=== PATIENT | female | born 1990 | race Hispanic/Latino ===

== ENCOUNTER 2018-01-29 09:17 | Emergency (ER) | payer OTHER, SELFPAY ==
[2018-01-29 09:26] VITALS: BP 115/77; PULSE 76; RESP 19; TEMP 36.2; O2SAT 96; BMI 28.5
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
[2018-01-29] MEDS: SODIUM CHLORIDE 0.9% 1,000 ML 1000 ML IV (09:44)
[2018-01-29] MEDS: DEXAMETHASONE 10 MG/ML VIAL IV (09:44)
[2018-01-29] MEDS: PROCHLORPERAZINE 10 MG/2 ML VIAL 5 MG IV (09:44)
[2018-01-29] MEDS: diphenhydrAMINE 50 MG/ML VIAL 25 MG IV ×2 (09:45→10:34)
--- NOTE | 2018-01-29 10:08 | DI.CT.S_ITS ---
PROCEDURE: CT HEAD/BRAIN WO CON INDICATIONS: 27-year-old female with sudden onset of severe headaches. TECHNIQUE: Noncontrast 4.5 mm thick angled axial sections acquired from the foramen magnum to the vertex, with coronal and sagittal reformats. For radiation dose reduction, the following was used: automated exposure control, adjustment of mA and/or kV according to patient size. COMPARISON: None. FINDINGS: Image quality: Excellent. CSF spaces: Basal cisterns are patent. No extra-axial fluid collections. Ventricles are normal in size and shape. Brain: No midline shift. No intracranial masses or hemorrhage. Keen-white matter interface is normal. Skull and face: Calvarium and visualized facial bones are intact, without suspicious lesions. Sinuses: Visualized sinuses and mastoids are clear. IMPRESSION: No acute intracranial abnormalities. Dictated by: Noah Schrader M.D. on 01/29/2018 at 10:19 Approved by: Noah Schrader M.D. on 01/29/2018 at 10:21
[2018-01-29] MEDS: ACETAMINOPHEN 325 MG TABLET 975 MG PO (10:34)
--- NOTE | 2018-01-29 10:39 | PC.NURSE ---
MD aware of pts c/o leg numbness and no change in h/a sx
--- NOTE | 2018-01-29 10:55 | PC.NURSE ---
Resting in room. States little improvement.
[2018-01-29 11:14] VITALS: BP 106/67; PULSE 60; RESP 15; O2SAT 100
== END 2018-01-29 11:17 | disposition home or self-care (01) ==
PROVIDERS: Emergency Provider Emergency Medicine
DX: G43.909 Migraine, unspecified, not intractable, without status migrainosus (principal)
CPT/HCPCS: 36591; 70450; 96361; 96374; 96375; 96376; 99283; 99284; J0780; J1100; J1200

== ENCOUNTER 2018-09-05 18:26 | Emergency (ER) | payer OTHER, SELFPAY ==
[2018-09-05 18:39] VITALS: BP 138/85; PULSE 75; RESP 16; TEMP 36.5; O2SAT 100; BMI 30.4
--- NOTE | 2018-09-05 20:03 | DI.US.S_ITS ---
PROCEDURE: US PELVIC COMPLETE INDICATIONS: POSITIVE HOME ; LEFT PELVIC PAIN TECHNIQUE: Real-time scanning was performed of the pelvic organs, with image documentation. Additional endovaginal scanning was necessary due to incomplete visualization of the adnexal and endometrial structures by transabdominal scanning. COMPARISON: None. FINDINGS: Transabdominal scanning: Limited scanning through the kidneys shows no hydronephrosis. No pathologic free abdominal or pelvic fluid. Endovaginal scanning: Uterus: Uterus is normal in size at 8.6 x 4.0 x 5.4 cm. The endometrium measures 7.1 mm in combined thickness. There is no sonographic evidence for a gestational sac or intrauterine . Ovaries: The right ovary measures 3.4 x 2.4 x 3.3 cm and has a normal echotexture. The left ovary measures 3.3 x 2.1 x 1.6 cm and has a normal echotexture. The suprasellar bilaterally. IMPRESSION: 1. No sonographic findings to suggest gestational sac or intrauterine . 2. No sonographic findings to suggest corpus luteal cyst or ectopic ; however ectopic cannot be excluded. Close clinical and sonographic surveillance is recommended. Dictated by: Sigrid Underwood M.D. on 09/05/2018 at 21:32 Approved by: Sigrid Underwood M.D. on 09/05/2018 at 21:34
--- NOTE | 2018-09-05 20:05 | ED.ABDPAIN ---
HPI - Abdominal Pain General Chief Complaint: Abdominal Pain Stated Complaint: 5 WKS SHARP PAIN RT SIDE Time Seen by Provider: 09/05/18 19:58 Source: patient Mode of arrival: ambulatory Limitations: no limitations History of Present Illness HPI narrative: patient is a 28-year-old female who presents with right upper quadrant pain. She has had 2 episodes of sharp stabbing pain which has now resolved. The pain was nonradiating. She was feeling well earlier today. sHe is also currently 5 weeks she has some mild left lower quadrant pain with out vaginal bleeding. She has not had any fever or chills no nausea or vomiting. MD complaint: abdominal pain Related Data Previous Rx's Medication Instructions Recorded azithromycin [Zithromax] 250 mg PO SEE INSTRUCTIONS #6 tab 11/01/17 ondansetron [Zofran ODT] 4 mg PO Q6H PRN #10 tab 01/29/18 Allergies Allergy/AdvReac Type Severity Reaction Status Date / Time No Known Drug Allergies Allergy Verified 01/29/18 09:26 Review of Systems Review of Systems GENERAL: Denies chills, fatigue, malaise, fever, sweats, travel HEENT: Denies sinus pain, ear pain, sore throat, difficulty swallowing, neck pain RESPIRATORY: Denies dyspnea, cough, wheezing, hemoptysis, sputum. CARDIOVASCULAR: Denies chest pain, palpitations, orthopnea, edema GASTROINTESTINAL: See HPI : Denies dysuria, frequency, incontinence, hematuria, urinary retention, flank pain. [employer]: See HPI MUSCULOSKELETAL: Denies weakness, joint pain, or bony pain SKIN: No rash, no erythema, no pruritus NEUROLOGIC: Denies weakness, dizziness, headache, numbness, change in speech, confusion PSYCHIATRIC: No concerning psychosocial issues. 12 point review of systems is negative except for those stated above and HPI PFSH Medical History Anemia (Acute) Surgical History History of appendectomy (Acute) Social History Smoking Status: Never smoker Comment: Exam Initial Vital Signs Initial Vital Signs: Vital Signs Temperature 97.7 F 09/05/18 18:39 Pulse Rate 75 09/05/18 18:39 Respiratory Rate 16 09/05/18 18:39 Blood Pressure 138/85 09/05/18 18:39 Pulse Oximetry 100 09/05/18 18:39 GENERAL: well-appearing female no acute distress HEENT: Head atraumatic,EOMI, pupils reactive CARDIOVASCULAR: Regular rate and rhythm without murmurs, rubs or gallops. RESPIRATORY: Breath sounds equal bilaterally, no wheezes rales or rhonchi. ABDOMEN: Soft, mild right upper quadrant pain no guarding no rebound no epigastric pain : No CVA tenderness EXTREMITIES: Normal range of motion, no clubbing or edema. Neurovascularly intact NEUROLOGICAL: Alert and oriented x4.Normal gait and speech. Cranial nerves II through XII grossly intact. SKIN: Warm, dry, no laceration, no petechiae, no rashes or lesions. Course Orders Ordered: ED Orders 09/05/18 20:03 US pelvic complete Stat 09/05/18 20:04 US abdomen complete Stat 09/05/18 20:15 Complete Blood Count AUTO DIFF Stat Comprehensive Metabolic Panel Stat HCG Quantitative Stat Lipase Stat 09/05/18 20:17 Urine Microscopic Stat Discontinued Medications Sodium Chloride (Normal Saline 0.9%) 1,000 mls @ 1,000 mls/hr IV CONT RAJ Last Infusion: 09/05/18 21:28 Dose: 1,000 mls/hr Admin: 09/05/18 20:11 Dose: 1,000 mls/hr Vital Signs - 8 hr 09/05/18 18:39 Temperature 97.7 F Pulse Rate 75 Respiratory Rate 16 Blood Pressure 138/85 Pulse Oximetry 100 MDM - Abdominal Pain Lab Data Attestation: I reviewed the patient's lab results. Result diagrams: 09/05/18 20:15 09/05/18 20:15 Lab Results 09/05/18 09/05/18 09/05/18 Range/Units 20:15 20:15 20:17 WBC 12.9 H (4.5-11.0) X10^3/uL RBC 4.73 (4.0-5.2) X10^6/uL Hgb 14.2 (12.0-16.0) g/dL Hct 42.9 (36-46) % MCV 90.8 (80-100) fL MCH 30.1 (26-34) PG MCHC 33.1 (30-36) % RDW 13.7 (11.6-14.8) % Plt Count 352 (150-400) X10^3/uL Neut % (Auto) 67.5 (50-75) % Lymph % (Auto) 25.2 (25-40) % [place] % (Auto) 6.2 (3-14) % Eos % (Auto) 0.6 L (2-4) % Baso % (Auto) 0.5 (0-2) % Neut # (Auto) 8700 H (8776-6255) /uL Lymph # (Auto) 3200 (1118-1718) /uL [place] # (Auto) 800 (0-900) /uL Eos # (Auto) 100 (0-450) /uL Baso # (Auto) 100 (0-100) /uL Sodium 138 (137-145) mmol/L Potassium 4.0 (3.4-5.1) mmol/L Chloride 102 (98-107) mmol/L Carbon Dioxide 26 (22-32) mmol/L BUN 18 H (7-17) mg/dL Creatinine 0.60 (0.52-1.04) mg/dL Estimated GFR > 60.0 (>60) mL/min BUN/Creatinine Ratio 30.0 H (6-22) Glucose 94 (70-100) mg/dL Calcium 9.4 (8.4-10.2) mg/dL Total Bilirubin 0.3 (0.2-1.3) mg/dL AST 21 (14-36) IU/L ALT 25 (9-52) IU/L Alkaline Phosphatase 85 (38-126) U/L Total Protein 8.1 (6.3-8.2) g/dL Albumin 4.8 (3.5-5.0) g/dL Globulin 3.3 (1.7-4.1) g/dL Albumin/Globulin Ratio 1.5 (1.0-2.8) Lipase 70 (23-300) U/L HCG, Quant < 2.39 mIU/mL Urine RBC 0-1/hpf (0-5/HPF) Urine WBC 0-1/hpf (0-5/HPF) Ur Squamous Epith Cells 0-1 /hpf Urine Bacteria None seen (None) Ur Culture Indicated? Cult not indicated Point of care testing: Urine Dip Bedside Urine Glucose Negative Bedside Urine Bilirubin - Negative Bedside Urine Ketone - Negative Urine Specific [place] 1.025 Bedside Urine Occult Blood +/- Bedside Urine pH 6.0 Bedside Urine Protein - Negative Bedside Urine Urobilinogen - Negative Bedside Urine Nitrite - Negative Bedside Urine Leukocytes - Negative Esterase Imaging Data US - abdomen: Radiologist's impression: PROCEDURE: US ABDOMEN COMPLETE INDICATIONS: PAIN TECHNIQUE: Real-time scanning was performed of the abdominal and retroperitoneal organs, with image documentation. COMPARISON: None. FINDINGS: Liver: Liver is normal in size and homogeneous in echotexture. Gallbladder: The gallbladder wall measures 2.3 mm in thickness. No stones, sludge, pericholecystic fluid, or sonographic Unger sign. Biliary ducts: Intrahepatic bile ducts are non-dilated. Extrahepatic bile duct caliber measures 3.0 mm. Normal is 6-7 mm or less in diameter, or 10 mm or less post-cholecystectomy. Pancreas: Visualized portions of the pancreas are sonographically normal. Spleen: Spleen is normal in size and homogeneous in echotexture. Kidneys: Kidneys are normal in size and echotexture. Right kidney measures 10.8 cm long; left kidney measures 9.1 cm long. No hydronephrosis or nephrolithiasis. No solid masses. Aorta: Visualized aorta is normal in caliber at less than 3 cm. Iliacs: Proximal common iliac arteries are normal in caliber at less than 2.5 cm. IVC: Intrahepatic inferior vena cava is patent. Miscellaneous: No free abdominal fluid. IMPRESSION: No cholelithiasis or findings to suggest choledocholithiasis or acute cholecystitis. Dictated by: Sigrid Underwood M.D. on 09/05/2018 at 21:29 Pelvic ultrasound: Radiologist's impression: PROCEDURE: US PELVIC COMPLETE INDICATIONS: POSITIVE HOME ; LEFT PELVIC PAIN TECHNIQUE: Real-time scanning was performed of the pelvic organs, with image documentation. Additional endovaginal scanning was necessary due to incomplete visualization of the adnexal and endometrial structures by transabdominal scanning. COMPARISON: None. FINDINGS: Transabdominal scanning: Limited scanning through the kidneys shows no hydronephrosis. No pathologic free abdominal or pelvic fluid. Endovaginal scanning: Uterus: Uterus is normal in size at 8.6 x 4.0 x 5.4 cm. The endometrium measures 7.1 mm in combined thickness. There is no sonographic evidence for a gestational sac or intrauterine . Ovaries: The right ovary measures 3.4 x 2.4 x 3.3 cm and has a normal echotexture. The left ovary measures 3.3 x 2.1 x 1.6 cm and has a normal echotexture. The suprasellar bilaterally. IMPRESSION: 1. No sonographic findings to suggest gestational sac or intrauterine . 2. No sonographic findings to suggest corpus luteal cyst or ectopic ; however ectopic cannot be excluded. Close clinical and sonographic surveillance is recommended. Dictated by: Sigrid Underwood M.D. on 09/05/2018 at 21:32 MDM Narrative Medical decision making narrative: Patient had no evidence of on ultrasound or by blood work. I have discussed these results with her. At this time blood work and abdominal ultrasound are reassuring. No identification of cause of right upper quadrant pain. She has not had any recurrence of pain while in the ED. At this time discharge home. Discharge Plan Departure Patient Disposition: Home Clinical Impression: Abdominal pain Discharge Date/Time: 09/05/18 20:05 Interventions: ED Discharge Assessment Last Done: 09/05/18 22:11 Instructions: DI for Abdominal Pain-Adult Activity Restrictions/Additional Instructions: *You have been diagnosed with abdominal discomfort *What to do: ultrasound of abdomen and pelvis are within normal limits. Unfortunately no is identified with blood work or ultrasound. *Continue to take medications as directed *Follow up with your primary care provider in 2-3 days *Return to ER if you should have increasing pain, persistent vomiting or any new, worsening or concerning symptoms Prescriptions: No Action azithromycin [Zithromax] 250 MG tablet 250 mg PO SEE INSTRUCTIONS Qty: 6 RF: 0 ondansetron [Zofran ODT] 4 mg tablet,disintegrating 4 mg PO Q6H PRN (Reason: nausea and vomiting) Qty: 10 RF: 0 Referrals: [facility] [Provider Group]
[2018-09-05] MEDS: SODIUM CHLORIDE 0.9% 1,000 ML 1000 ML IV (20:11)
[2018-09-05 20:28] LABS: Add Manual Diff / Slide Review NO; Basophils Absolute Auto 100 /uL (0-100); Basophils Percent Auto 0.5 % (0-2); Eosinophils Absolute Auto 100 /uL (0-450); Eosinophils Percent Auto 0.6 % (2-4); Hematocrit 42.9 % (36-46); Hemoglobin 14.2 g/dL (12.0-16.0); Lymphocytes Absolute Auto 3200 /uL (1100-4500); Lymphocytes Percent Auto 25.2 % (25-40); Mean Corpuscular HGB Conc 33.1 % (30-36); Mean Corpuscular Hemoglobin 30.1 PG (26-34); Mean Corpuscular Volume 90.8 fL (80-100); Monocytes Absolute Auto 800 /uL (0-900); Monocytes Percent Auto 6.2 % (3-14); Neutrophils Absolute Auto 8700 /uL (1500-7000); Neutrophils Percent Auto 67.5 % (50-75); Platelet Count 352 X10^3/uL (150-400); Red Blood Cell Count 4.73 X10^6/uL (4.0-5.2); Red Cell Distribution Width 13.7 % (11.6-14.8); White Blood Cell Count 12.9 X10^3/uL (4.5-11.0)
[2018-09-05 20:46] LABS: Alanine Aminotransferase 25 IU/L (9-52); Albumin 4.8 g/dL (3.5-5.0); Albumin Globulin Ratio 1.5 (1.0-2.8); Alkaline Phosphatase 85 U/L (38-126); Aspartate Aminotransferase 21 IU/L (14-36); Bilirubin Total 0.3 mg/dL (0.2-1.3); Blood Urea Nitrogen 18 mg/dL (7-17); Calcium 9.4 mg/dL (8.4-10.2); Carbon Dioxide 26 mmol/L (22-32); Chloride 102 mmol/L (98-107); Estimated Glomerular Filt Rate > 60.0 mL/min (>60); Globulin 3.3 g/dL (1.7-4.1); Glucose 94 mg/dL (70-100); HEMOLYSIS < 15 (0-50); Lipase 70 U/L (23-300); Sodium 138 mmol/L (137-145); Total Protein 8.1 g/dL (6.3-8.2)
[2018-09-05 21:02] LABS: HCG Quantitative /Beta subunit < 2.39 mIU/mL
[2018-09-05 21:20] LABS: Bacteria Urine None Seen
[2018-09-05 21:29] LABS: Culture Indicated Urine Cult Not Indicated; RBC Urine 0-1/HPF (0-5/HPF); Squamous Epithelial Cell Urine 0-1 /HPF; WBC Urine 0-1/HPF (0-5/HPF)
== END 2018-09-05 20:05 | disposition home or self-care (01) ==
PROVIDERS: Emergency Provider Emergency Medicine
DX: R10.9 Unspecified abdominal pain (principal)
CPT/HCPCS: 76700; 76830; 76856; 80053; 81003; 81015; 83690; 84702; 85025; 96360; 99283; 99284

== ENCOUNTER 2018-12-06 20:10 | Emergency (ER) | payer OTHER, SELFPAY ==
[2018-12-06 20:20] VITALS: BP 125/83; PULSE 76; RESP 18; TEMP 37.2; O2SAT 100; BMI 30.4
--- NOTE | 2018-12-06 21:46 | ED_ITS ---
HPI - Abdominal Pain General Chief Complaint: Abdominal Pain Stated Complaint: constipation x 6 days Time Seen by Provider: 12/06/18 20:56 Source: patient Mode of arrival: ambulatory Limitations: no limitations History of Present Illness HPI narrative: Patient is a 28-year-old otherwise healthy female here for evaluation of not having a bowel movement in the past 6 days. She states she now has hemorrhoids. She has bought some MiraLax [id number] and the last time she used it was earlier today. Is having some abdominal distention. No vaginal bleeding. No urinary symptoms. she has had her appendix out but no other abdominal surgeries. States she does have some hemorrhoids which she bought some witch Abena pads for. Related Data Previous Rx's Medication Instructions Recorded azithromycin [Zithromax] 250 mg PO SEE INSTRUCTIONS #6 tab 11/01/17 ondansetron [Zofran ODT] 4 mg PO Q6H PRN #10 tab 01/29/18 Allergies Allergy/AdvReac Type Severity Reaction Status Date / Time No Known Drug Allergies Allergy Verified 01/29/18 09:26 Review of Systems Constitutional Denies fever(s) and Denies headache(s) ENT Ears, Nose, Mouth, and Throat: Denies vertigo and Denies headache(s) Cardiovascular Denies chest pain and Denies dyspnea Respiratory Denies dyspnea Gastrointestinal Gastrointestinal: Denies abdominal pain, Reports bloating, Reports constipation, Denies nausea and Denies vomiting Genitourinary Denies dysuria and Denies vaginal discharge Musculoskeletal Denies myalgias and Denies arthralgias Integumentary/Breasts Denies rash Neurologic Denies vertigo and Denies headache(s) Hematologic/Lymphatic Denies easy bleeding and Denies easy bruising [facility] Medical History Anemia (Acute) Surgical History History of appendectomy (Acute) Social History Smoking Status: Never smoker Social History Smoking Status: Never smoker Exam Initial Vital Signs Initial Vital Signs: Vital Signs Temperature 98.9 F 12/06/18 20:20 Pulse Rate 76 12/06/18 20:20 Respiratory Rate 18 12/06/18 20:20 Blood Pressure 125/83 12/06/18 20:20 Pulse Oximetry 100 12/06/18 20:20 Const General: cooperative, comfortable, well developed, well groomed and No acute distress Orientation: alert, awake and oriented x3 Resp Effort & Inspection: normal respiratory effort Cardio Rate: regular rate GI Inspection: non-distended Palpation: soft, No firm, No guarding, No mass and No tender Neuro General: alert, awake and oriented x3 Cognition: normal cognition Speech: speech normal Extrem General: normal to inspection and capillary refill normal Course Orders Ordered: Discontinued Medications Mineral Oil (Mineral Oil Enema) 1 each MS NOW ONE Stop: 12/06/18 22:17 Last Admin: 12/06/18 22:44 Dose: 1 each Vital Signs - 8 hr 12/06/18 20:20 12/06/18 22:09 Temperature 98.9 F Pulse Rate 76 76 Respiratory Rate 18 18 Blood Pressure 125/83 Blood Pressure [Right Arm] 115/64 Pulse Oximetry 100 98 MDM - Abdominal Pain Lab Data Point of care testing: Point of Care Testing Test Results Negative Urine Dip Bedside Urine Glucose Negative Bedside Urine Bilirubin - Negative Bedside Urine Ketone - Negative Urine Specific [place] 1.015 Bedside Urine Occult Blood - Negative Bedside Urine pH 7.0 Bedside Urine Protein - Negative Bedside Urine Urobilinogen - Negative Bedside Urine Nitrite - Negative Bedside Urine Leukocytes - Negative Esterase MDM Narrative Medical decision making narrative: Had a discussion with the patient's regarding her options to include going home and continue with the MiraLax, disimpaction, enemas here in the emergency department, enemas at home. Patient agreed to have an enema here in the emergency department which was unsuccessful. She states that she was feeling the pressure somewhat less after the enema. She declined a manual disimpaction. She states she would rather go home and continue with the MiraLax and enemas that she can purchase [id number]. Will hold on any x- rays for now. She has a benign abdominal exam. Patient was given return precautions and follow-up instructions. She expressed understanding and agreement with plan. Discharge Plan Departure Patient Disposition: Home Clinical Impression: Constipation Qualifiers: Constipation type: unspecified constipation type Qualified Code(s): K59.00 - Constipation, unspecified Instructions: Constipation (Alternative Therapy), Constipation Activity Restrictions/Additional Instructions: You can continue with the MiraLax like we discussed. Be sure your increasing your fluid intake. Contact your primary care doctor for follow-up. You can also purchase enemas [id number] use them as directed. Return to the emergency department for any new or worsening symptoms Prescriptions: No Action azithromycin [Zithromax] 250 MG tablet 250 mg PO SEE INSTRUCTIONS Qty: 6 RF: 0 ondansetron [Zofran ODT] 4 mg tablet,disintegrating 4 mg PO Q6H PRN (Reason: nausea and vomiting) Qty: 10 RF: 0
[2018-12-06 22:09] VITALS: BP 115/64; PULSE 76; RESP 18; O2SAT 98
[2018-12-06] MEDS: MINERAL OIL 1 EACH ENEMA PR (22:44)
--- NOTE | 2018-12-06 23:15 | PC.NURSE ---
Pt has BM of mineral oil but no real BM and informed DR Cain.
[2018-12-06 23:32] VITALS: BP 118/70; PULSE 72; RESP 18; TEMP 36.7; O2SAT 99
== END 2018-12-06 23:32 | disposition home or self-care (01) ==
PROVIDERS: Emergency Provider Emergency Medicine
DX: K59.00 Constipation, unspecified (principal)
CPT/HCPCS: 81003; 81025; 99283

== ENCOUNTER 2019-09-18 14:48 | Emergency (ER) | payer OTHER, SELFPAY ==
[2019-09-18 16:17] VITALS: BP 137/88; PULSE 67; RESP 16; TEMP 36.9; O2SAT 98; BMI 30.4
--- NOTE | 2019-09-18 16:51 | ED.RECABL ---
HPI - Recheck/Abnormal Lab/Rx <Venkat BradleyMARGARITA piña - Last Filed: 09/18/19 16:59> General Chief Complaint: Recheck/Abnormal Lab/Rx Stated Complaint: NEEDS A NOTE TO GO BACK TO WORK Time Seen by Provider: 09/18/19 16:33 Source: patient Mode of arrival: Family Vehicle Limitations: no limitations History of Present Illness HPI narrative: This is a 29-year-old female, nonsmoker, who presents to ED with requesting for re-evaluation for bronchitis and clearance to go back to work. Patient reports she has been on antibiotic medication, erythromycin, since Saturday due to mild fever, chest pain, breathing difficulty, significant cough. She reports her symptoms have been improved significantly after 2 days of antibiotic medication. She has been fever free for last 3 days. Patient is able to tolerate fluids and denies chest pain, significant productive cough, fatigue. 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 Related Data Previous Rx's Medication Instructions Recorded azithromycin [Zithromax] 250 mg PO SEE INSTRUCTIONS #6 tab 11/01/17 ondansetron [Zofran ODT] 4 mg PO Q6H PRN #10 tab 01/29/18 Allergies Allergy/AdvReac Type Severity Reaction Status Date / Time No Known Drug Allergies Allergy Verified 01/29/18 09:26 Review of Systems <Venkat NoriegaAmyMARGARITA Jimenez - Last Filed: 09/18/19 16:59> Review of Systems Narrative: General: Denies fever, chills, fatigue, malaise, sweats. HEENT: Denies sinus pain, ear pain, sore throat, difficulty swallowing, dizziness. Respiratory: Denies dyspnea, cough, wheezing, hemoptysis, sputum. Cardiovascular: Denies chest pain, palpitations, orthopnea, edema. Gastrointestinal: Denies nausea, vomiting, abdominal pain, diarrhea, constipation, melena. : Denies dysuria, frequency, incontinence, hematuria, urinary retention. Musculoskeletal: Denies weakness, joint pain or bony pain. Skin: Denies rash, skin lesions, or other. Neurologic: Denies weakness, headache, numbness, change in speech, confusion, seizures, incoordination. Psychiatric: No concerning psychosocial issues. 12-point review of systems is negative except for those stated above. Patient History <MARGARITA Zamarripa - Last Filed: 09/18/19 16:59> Medical History Anemia (Acute) Bronchitis (Acute) Surgical History History of appendectomy (Acute) Social History Smoking Status: Never smoker Smoking Status: Never smoker alcohol intake frequency: holidays/special occasions only Substance Use Type: does not use Exam <MARGARITA Zamarripa - Last Filed: 09/18/19 16:59> Narrative Exam Narrative: General appearance: well developed, well nourished, in no acute distress. Head: normocephalic, atraumatic, no scalp lesions, non-tender. ENT: Hearing grossly intact. Mucous membrane moist, no mucosal lesion. Throat without erythema, tonsillar hypertrophy or exudate. Uvula in midline, airway patent. Neck/Thyroid: neck supple, full range of motion, no visible masses or meningeal signs. No JVD, non-tender without lymphadenopathy. Skin: no suspicious rashes, lesions over visible areas. Warm and dry and appropriate color for ethnicity. Heart: no clubbing, no cyanosis, no edema. S1 and S2 normal. RRR w/o murmurs, clicks, or bruits. Lungs: Breathing even and unlabored. Lungs clear to auscultate in all lobes. No stridor. No accessory muscles used. Able to speak in full sentences. Chest: normal shape and expansion. Abdomen: non-obese, non-distended, soft, intact bowel sounds in all quadrant, nontender to palpate. Neurologic: alert and oriented. Cognitive exam, HEAD SAWYER and PNS grossly intact on informal exam. Psych: good eye contact, normal affect. Initial Vital Signs Initial Vital Signs: Vital Signs Temperature 98.4 F 09/18/19 16:17 Pulse Rate 67 09/18/19 16:17 Respiratory Rate 16 09/18/19 16:17 Blood Pressure 137/88 09/18/19 16:17 Pulse Oximetry 98 09/18/19 16:17 <Rush Wyatt MD - Last Filed: 09/18/19 21:52> Initial Vital Signs Initial Vital Signs: Vital Signs Temperature 98.4 F 09/18/19 16:17 Pulse Rate 67 09/18/19 16:17 Respiratory Rate 16 09/18/19 16:17 Blood Pressure 137/88 09/18/19 16:17 Pulse Oximetry 98 09/18/19 16:17 Scores <Venkat HuertaMARGARITA piña - Last Filed: 09/18/19 16:59> GCS Barbi coma scale eye opening: Spontaneous Barbi coma scale verbal response: Orientated Barbi coma scale motor response: Obey commands Ava coma scale total score: 15 Course <Venkat RazaMARGARITA Perkins - Last Filed: 09/18/19 16:59> Vital Signs Vital signs: Vital Signs - 8 hr 09/18/19 16:17 Temperature 98.4 F Pulse Rate 67 Respiratory Rate 16 Blood Pressure 137/88 Pulse Oximetry 98 <Rush Wyatt MD - Last Filed: 09/18/19 21:52> Vital Signs Vital signs: Vital Signs - 8 hr 09/18/19 16:17 Temperature 98.4 F Pulse Rate 67 Respiratory Rate 16 Blood Pressure 137/88 Pulse Oximetry 98 [facility] - Recheck/Abnormal Lab/Rx <Venkat HuertaMARGARITA piña - Last Filed: 09/18/19 16:59> Differential Diagnosis Differential diagnosis: Likely other (Encounter for re-evaluation on recent illness bronchitis) Medical Records Attestation: I reviewed the patient's medical records. [facility] Narrative Medical decision making narrative: Patient reports improving symptoms, fever free since she had started antibiotic medication 5 days ago. Normal physical exam with clear lung sounds, stable vital signs with afebrile. Patient is ready to return to work. Continue with current medications and albuterol as needed if coughing. Good hand hygiene after coughing instructed. Return precautions were discussed and patient verbalized understanding and agrees with the treatment plan. Discharge Plan Departure Patient Disposition: Home Clinical Impression: Normal exam Discharge Date/Time: 09/18/19 17:09 Activity Restrictions/Additional Instructions: You have been diagnosed with [resolving bronchitis after antibiotic medication for last 5 days. You have been fever free for last 3 days and there is no significant coughing, able to tolerate fluids, and feeling much improved at this time. Therefore, you are able to return to work]. What to do: *Take your medications as directed. *Follow up with your primary care provider in 2-3 days, call for an appointment. Let them know you were seen in the ED and that we asked you to be seen in follow up. *Return to ED if you have any new, worsening, or concerning symptoms, such as [chest pain, breathing difficulty, unable to tolerate fluids, fever, or any acute concerns]. Prescriptions: No Action azithromycin [Zithromax] 250 MG tablet 250 mg PO SEE INSTRUCTIONS Qty: 6 RF: 0 ondansetron [Zofran ODT] 4 mg tablet,disintegrating 4 mg PO Q6H PRN (Reason: nausea and vomiting) Qty: 10 RF: 0 [address]errals: [facility] [Outside] Stand Alone Forms: Work Release Note
== END 2019-09-18 17:09 | disposition home or self-care (01) ==
PROVIDERS: Emergency Provider Nurse Practitioner Family
DX: Z00.00 Encounter for general adult medical examination without abnormal findings (principal)
CPT/HCPCS: 99281

== ENCOUNTER → 2020-02-11 16:43 | Outpatient (CLI) | payer OTHER, SELFPAY ==
[2020-02-11 17:36] LABS: Appearance Urine UA CLEAR; Bilirubin Urine UA NEGATIVE (NEGATIVE); Color Urine UA YELLOW; Glucose Urine UA NEGATIVE (Negative); Ketones Urine UA TRACE (NEGATIVE); Leukocyte Esterase Urine UA NEGATIVE (NEGATIVE); Nitrite Urine UA NEGATIVE (Negative); Occult Blood Urine UA 1+ (Negative); Protein Urine UA NEGATIVE (Negative); Specific Gravity Urine UA 1.025 (1.000-1.035)
[2020-02-11 17:38] LABS: pH Urine UA 5.5 (4.5-8.0)
[2020-02-11 17:46] LABS: Add Manual Diff / Slide Review NO; Basophils Absolute Auto 0 /uL (0-100); Basophils Percent Auto 0.3 % (0-2); Eosinophils Absolute Auto 100 /uL (0-450); Eosinophils Percent Auto 0.6 % (2-4); Hematocrit 39.2 % (36-46); Hemoglobin 13.4 g/dL (12.0-16.0); Lymphocytes Absolute Auto 2300 /uL (1100-4500); Lymphocytes Percent Auto 19.9 % (25-40); Mean Corpuscular HGB Conc 34.1 % (30-36); Mean Corpuscular Hemoglobin 31.6 PG (26-34); Mean Corpuscular Volume 92.5 fL (80-100); Monocytes Absolute Auto 800 /uL (0-900); Monocytes Percent Auto 6.7 % (3-14); Neutrophils Absolute Auto 8300 /uL (1500-7000); Neutrophils Percent Auto 72.5 % (50-75); Platelet Count 299 X10^3/uL (150-400); Red Blood Cell Count 4.24 X10^6/uL (4.0-5.2); Red Cell Distribution Width 12.8 % (11.6-14.8); White Blood Cell Count 11.4 X10^3/uL (4.5-11.0)
[2020-02-11 17:51] LABS: Bacteria Urine Occasional (0-1); Calcium Oxalate Crystals Urine Few; RBC Urine 1-5/HPF (0-5/HPF); Squamous Epithelial Cell Urine 1-5 /HPF (0-5/HPF); WBC Urine 0-1/HPF (0-5/HPF)
[2020-02-11 17:53] LABS: Mucus Urine 1+ (Negative)
[2020-02-12 04:45] LABS: RPR Screen Non Reactive (Non Reactive)
[2020-02-12 09:04] LABS: Hepatitis B Surface Antigen NEGATIVE s/c (NEGATIVE); Rubella Antibody IgG 8.8 IU/mL (>15)
[2020-02-12 09:16] LABS: HIV 1 & 2 Ab/Ag 4th Gen Combo NEGATIVE (NEGATIVE); Hep C Virus Ab w/Reflex Quant NEGATIVE s/c (NEGATIVE)
[2020-02-12 12:12] LABS: Varicella IgG Antibody 921 index (Immune >165)
[2020-02-13 07:12] LABS: Candida species Negative (Negative); Gardnerella vaginalis Negative (Negative); Trichomoas vaginalis Negative (Negative)
== END ==
PROVIDERS: Referring Provider Obstetrics & Gynecology; Visit Provider Obstetrics & Gynecology
DX: Z34.90 Encounter for supervision of normal pregnancy, unspecified, unspecified trimester (principal)
CPT/HCPCS: 36415; 80055; 81003; 81015; 86787; 86803; 86850; 86900; 86901; 87086; 87389; 87480; 87510; 87660

== ENCOUNTER → 2020-02-16 14:38 | Outpatient (CLI) | payer OTHER, SELFPAY ==
--- NOTE | 2020-02-16 | DI.US.S_ITS ---
PROCEDURE: US ABDOMEN LIMITED INDICATIONS: LEFT HIP PAIN; POSSIBLE HEMATOMA TECHNIQUE: Real-time focused scanning was performed of the abdomen, with image documentation. COMPARISON: [facility], , US ABDOMEN LIMITED, 02/16/2020, 19:06. FINDINGS: In the area of clinical concern and pain, no sonographic abnormality identified. No discrete hematoma, mass or focal fluid collection is seen, IMPRESSION: Negative examination as above Dictated by: Jer Walker M.D. on 02/17/2020 at 10:03 Approved by: Jer Walker M.D. on 02/17/2020 at 10:04
--- NOTE | 2020-02-16 14:41 | DI.US.S_ITS ---
PROCEDURE: US OB LIMITED INDICATIONS: Bleeding in after fall and Left kidney pain OUTSIDE/PRIOR DATING DATA: Last menstrual period (LMP): 11/01/19. LMP-based estimated date of delivery (WILMER): 08/07/20. TECHNIQUE: Real-time scanning was performed of the fetus, with image documentation and biometric measurements. Endovaginal scanning: Not performed COMPARISON: [facility], LINDA, OB COMPLETE, 02/16/2020, 13:00. FINDINGS: General: A single living intrauterine gestation is present. heart rate: 158 beats per minute. biometrics: Biparietal diameter: 2.8 cm, 15 weeks and 1 day Head circumference: 10.6 cm, 15 weeks and 1 day Abdominal circumference: 9.2 cm, 15 weeks and 3 days Femur length: 1.5 cm, 14 weeks and 4 days Estimated gestational age from initial scan: not applicable. Composite gestational age from present scan: 15 weeks and 1 day Estimated weight and percentile: Not measured Measurement variability for biometric dating: +/- 7 days from 14 weeks to 15 weeks 6 days gestation, +/- 10 days from 16 weeks to 21 weeks 6 days gestation, +/- 2 weeks from 22 weeks to 27 weeks 6 days gestation, +/- 3 weeks for 28 weeks gestation or later. weight reference: 4500 g or EFW >90/95% is considered macrosomia or large for gestational age. EFW <10% is small for gestational age. EFW 5% or less is considered intra-uterine growth restriction. Other: There is an apparent enlarging heterogeneous collection noted between the placenta and uterus measuring approximately 7.2 cm x 2.9 cm x 5.0 cm. This measured 4.2 cm x 0.9 cm from exam obtained earlier today. There is internal vascularity within this fluid collection. IMPRESSION: 1. Single living intrauterine gestation with an estimated sonographic gestational age of approximately 15 weeks and 1 day. 2. Enlarging, heterogeneous fluid collection with internal vascularity noted between the placenta and uterus is suspicious for placental abruption. Findings were discussed telephonically with Dr. Solitario at 1610 hrs. Dictated by: José Carrasoc M.D. on 02/16/2020 at 16:08 Approved by: José Carrasco M.D. on 02/16/2020 at 16:16
== END ==
PROVIDERS: Referring Provider Obstetrics & Gynecology; Visit Provider Obstetrics & Gynecology
DX: O9A.212 Injury, poisoning and certain other consequences of external causes complicating pregnancy, second trimester (principal); O46.8X2 Other antepartum hemorrhage, second trimester; N23 Unspecified renal colic; M25.552 Pain in left hip; Z3A.15 15 weeks gestation of pregnancy; W19.XXXA Unspecified fall, initial encounter
CPT/HCPCS: 76705; 76815

== ENCOUNTER 2020-02-16 17:10 | Observation (INO) | payer OTHER, SELFPAY ==
[2020-02-16] VITALS (15 sets, daily range): BP systolic 107–127; BP diastolic 58–85; PULSE 80–94; RESP 16; TEMP 36.6; O2SAT 97–100; BMI 34.2
--- NOTE | 2020-02-16 18:21 | DI.US.S_ITS ---
PROCEDURE: US ABDOMEN LIMITED INDICATIONS: LEFT FLANK PAIN POST FALL TECHNIQUE: Real-time scanning was performed of the abdominal and retroperitoneal organs, with image documentation. COMPARISON: [facility], CR, XR RIBS LT MIN 3V W [id number], 02/16/2020, 18:29. [facility], US, US ABDOMEN COMPLETE, 09/05/2018, 20:55. [facility], US, ABDOMEN LIMITED, 11/04/2015, 14:00. FINDINGS: Left kidney: Kidney is normal in size and echotexture. Left kidney measures 10.9 cm cm long. No hydronephrosis or nephrolithiasis. No solid masses. Spleen: Measures 9.3 cm. No laceration or perisplenic fluid. No free fluid in the 4 abdominal quadrants. Gravid uterus. A heart rate 147 bpm. IMPRESSION: No left kidney or splenic injury identified. No free fluid. Dictated by: Fahad Robertson M.D. on 02/16/2020 at 19:33 Approved by: Fahad Robertson M.D. on 02/16/2020 at 19:38
--- NOTE | 2020-02-16 18:26 | ED_ITS ---
HPI - Fall General Chief Complaint: Abdominal Pain Stated Complaint: FALL LEFT SIDE LOWER BACK BELLY PAIN 16 WKS PREGNA Time Seen by Provider: 02/16/20 18:12 Source: patient Mode of arrival: Ambulatory History of Present Illness HPI Narrative: Patient sent here from her OBGYN office dr saravia... Patient fell at home reaching for an item and her dog bumped into a chair causing her to fall landing on her left side/left flank. Denies denies any other injury other than left flank. No head neck limb pelvis lower extremity pain. No neck pain. Patient was seen in the OB office and had ultrasound completed. Please see report below. Patient here is for further evaluation for trauma and then to be admitted for observation with OB. Patient is A2. Denies any vaginal bleeding. She did already have a pelvic exam by her OB doctor. Patient blood type is O-positive that was drawn 5 [place] [address] Ultrasound Report Signed Patient: Damaris Fleming JMR#: [id number] : 1990Acct:[id number] Age/Sex: 29 / FDate of Service: 02/16/20 Loc: US Accession Number: [id number] Procedure: US OB limited Ordering Provider: Davina Saravia MD PROCEDURE: US OB LIMITED INDICATIONS: Bleeding in after fall and Left kidney pain OUTSIDE/PRIOR DATING DATA: Last menstrual period (LMP): 11/01/19. LMP-based estimated date of delivery (WILMER): 08/07/20. TECHNIQUE: Real-time scanning was performed of the fetus, with image documentation and bi ometric measurements. Endovaginal scanning: Not performed COMPARISON: [facility], LINDA, OB COMPLETE, 02/16/2020, 13:00. FINDINGS: General: A single living intrauterine gestation is present. heart rate: 158 beats per minute. biometrics: Biparietal diameter: 2.8 cm, 15 weeks and 1 day Head circumference: 10.6 cm, 15 weeks and 1 day Abdominal circumference: 9.2 cm, 15 weeks and 3 days Femur length: 1.5 cm, 14 weeks and 4 days Estimated gestational age from initial scan: not applicable. Composite gestational age from present scan: 15 weeks and 1 day Estimated weight and percentile: Not measured Measurement variability for biometric dating: +/- 7 days from 14 weeks to 15 weeks 6 days gestation, +/- 10 days from 16 weeks to 21 weeks 6 days gestation, +/- 2 weeks from 22 weeks to 27 weeks 6 days gestation, +/- 3 weeks for 28 weeks gestation or later. weight reference: 4500 g or EFW >90/95% is considered macrosomia or large for gestational age. EFW <10% is small for gestational age. EFW 5% or less is considered intra-uterine growth restriction. Other: There is an apparent enlarging heterogeneous collection noted between the placenta and uterus measuring approximately 7.2 cm x 2.9 cm x 5.0 cm. This measured 4.2 cm x 0.9 cm from exam obtained earlier today. There is internal vascularity within this fluid collection. IMPRESSION: 1. Single living intrauterine gestation with an estimated sonographic gestational age of approximately 15 weeks and 1 day. 2. Enlarging, heterogeneous fluid collection with internal vascularity noted between the placenta and uterus is suspicious for placental abruption. Findings were discussed telephonically with Dr. Saravia at 1610 hrs. Dictated by: José Carrasco M.D. on 02/16/2020 at 16:08 Approved by: José Carrasco M.D. on 02/16/2020 at 16:16 Related Data Home Medications Medication Instructions Recorded Confirmed prenat.vits,nisha,[id number] 1 tab PO DAILY 02/10/20 02/16/20 Allergies Allergy/AdvReac Type Severity Reaction Status Date / Time No Known Drug Allergies Allergy Verified 02/16/20 17:29 Review of Systems Review of Systems Narrative: GENERAL: Denies chills, fatigue, malaise, fever, sweats. HEENT: Denies sinus pain, ear pain, sore throat, difficulty swallowing, dizziness. RESPIRATORY: Denies dyspnea, cough, wheezing, hemoptysis, sputum. CARDIOVASCULAR: Denies chest pain, palpitations, orthopnea, edema, GASTROINTESTINAL: Denies nausea, vomiting, abdominal pain, diarrhea, constipation, melena. : Denies dysuria, frequency, incontinence, hematuria, urinary retention. MUSCULOSKELETAL: Complains of left flank pain SKIN: Denies rash, skin lesions, or other NEUROLOGIC: Denies weakness, headache, numbness, change in speech, confusion, seizures, incoordination. PSYCHIATRIC: No concerning psychosocial issues. ROS Unobtainable: All systems reviewed & are unremarkable except as noted in HPI and below Patient History Medical History Anemia (Acute) Bronchitis (Acute) Dehydration (Acute ~02/04/20) Episode of syncope (Acute) Migraine (Acute) Multiparity (Acute) Stress (Acute) (spontaneous vaginal delivery) (Acute) Surgical History History of appendectomy (Acute ~10/2015) Family History Mother Heart palpitations Father Family estrangement Heroin addiction HIV (human immunodeficiency virus infection) Adopted Son Cardiac arrhythmia Cardiac related syncope Grandfather Diabetes mellitus Grandmother Myocardial infarction Hypertension Cardiomyopathy Grandfather Family estrangement Grandmother Family estrangement Family/Other Cervical cancer Social History marital status: unmarried,living together number of children: 2 household members: significant other and children pets and animals: Yes (X 1 Dog and X 1 Cat ) education level: college occupational status: unemployed current occupational exposures/hazards: No clay/restorationism: Anabaptist special clay needs: No Smoking Status: Never smoker second hand exposure: No alcohol intake: former substance use type: does not use Smoking Status: Never smoker alcohol intake frequency: holidays/special occasions only Substance Use Type: does not use Exam Narrative Exam Narrative: GENERAL: patient appears stated age. Well-nourished, well- developed patient, in no distress, not toxic, shirt off HEAD: Atraumatic. Normocephalic. EYES: Pupils equal round and reactive. Extraocular motions intact. No scleral icterus. No injection or drainage. ENT: Nose without bleeding, purulent drainage. Throat without erythema, tonsillar hypertrophy or exudate. Airway patent. NECK: Trachea midline. Non tender CARDIOVASCULAR: Regular rate and rhythm without murmurs, gallops, or rubs. RESPIRATORY: Clear to auscultation. Breath sounds equal bilaterally. No wheezes, rales, or rhonchi. Speaks full sentences GASTROINTESTINAL: Abdomen soft, non-tender, nondistended. EXTREMITIES: No edema or joint tenderness. No no tenderness of the pelvis bones hips knees or ankles. No shoulder elbow or wrist or hand tenderness or deformity. BACK: There is left flank tenderness but no crepitus or flail of the ribs. There is lower posterior rib on the left side tenderness. No abrasion or bruising seen on the skin., paralumbar muscle tenderness on the left side NEURO: AOx3. SKIN: No rash or erythema of visible areas Initial Vital Signs Initial Vital Signs: Vital Signs Temperature 97.8 F 02/16/20 17:26 Pulse Rate 94 H 02/16/20 17:26 Respiratory Rate 16 02/16/20 17:26 Blood Pressure 118/77 02/16/20 17:26 Pulse Oximetry 97 02/16/20 17:26 Course Course Course Narrative: I spoke with patient regarding risks and benefits of x-rays for rib details. Understands not 100% shielding possible with x-rays and radiation. She understands importance of looking at the lungs and ribs due to severity of the fall. We will use shielding of the pelvis Decision to Admit Date: 02/16/20 Decision to Admit time: 19:35 Orders Ordered: ED Orders 02/16/20 18:15 Complete Blood Count AUTO DIFF Stat Comprehensive Metabolic Panel Stat HCG Quantitative /Beta subunit Stat Prothrombin Time INR Stat 02/16/20 18:21 US abdomen limited Stat 02/16/20 18:34 XR ribs LT min 3V w CXR1V Stat 02/17/20 07:00 Complete Blood Count AUTO DIFF Routine Acetaminophen (Tylenol) 650 mg PO Q6HR RAJ Last Admin: 02/17/20 00:47 Dose: 650 mg Documented by: MMCFARL Calcium Carbonate (Tums) 1,000 mg PO Q4HR PRN PRN Reason: Dyspepsia Naloxone HCl (Narcan) 0.2 mg IV Q2MIN PRN PRN Reason: Opiate Reversal Ondansetron HCl (Zofran) 4 mg IV Q8HR PRN PRN Reason: Nausea And Vomiting Reevaluation(s) Reevaluation #1: No new complaints. Patient comfortable, family at bedside. Time: 19:35 Reevaluation #2: Patient much more comfortable now. Time: 20:57 Consultations Consultation #1: Spoke with physician assistant chief of policeMichael, with OB, in the emergency department, patient will be sent to L and D after results complete here Time: 18:31 Consultation #2: s/w dr saravia...will give orders to l and d floor Time: 20:03 Consultation #3: dr saravia at bedside to admit pt awaiting for bed Time: 20:57 Vital Signs Vital signs: Vital Signs - 8 hr 02/16/20 17:26 02/16/20 19:00 02/16/20 19:10 Temperature 97.8 F Pulse Rate 94 H 91 H 92 H Respiratory Rate 16 Blood Pressure 118/77 117/74 Pulse Oximetry 97 100 98 02/16/20 19:20 02/16/20 19:30 02/16/20 19:40 Temperature Pulse Rate 85 82 82 Respiratory Rate Blood Pressure 120/68 Pulse Oximetry 99 99 100 02/16/20 20:00 02/16/20 20:15 02/16/20 20:30 Temperature Pulse Rate 85 91 H 90 Respiratory Rate Blood Pressure 119/75 121/70 127/76 Pulse Oximetry 100 99 100 02/16/20 21:00 02/16/20 21:30 02/16/20 22:00 Temperature Pulse Rate 82 83 94 H Respiratory Rate Blood Pressure 116/66 115/85 117/63 Pulse Oximetry 99 98 97 02/16/20 22:30 02/16/20 23:00 02/16/20 23:30 Temperature Pulse Rate 80 90 82 Respiratory Rate Blood Pressure 117/58 L 108/68 107/59 L Pulse Oximetry 97 97 98 MDM - Fall Lab Data Result diagrams: 02/16/20 18:15 02/16/20 18:15 Labs: Lab Results 02/16/20 02/16/20 02/16/20 Range/Units 18:15 18:15 18:15 WBC 12.2 H (4.5-11.0) X10^3/uL RBC 4.17 (4.0-5.2) X10^6/uL Hgb 13.3 (12.0-16.0) g/dL Hct 38.5 (36-46) % MCV 92.2 (80-100) fL MCH 31.7 (26-34) PG MCHC 34.5 (30-36) % RDW 12.9 (11.6-14.8) % Plt Count 320 (150-400) X10^3/uL Neut % (Auto) 73.3 (50-75) % Lymph % (Auto) 21.2 L (25-40) % Hidalgo % (Auto) 4.5 (3-14) % Eos % (Auto) 0.5 L (2-4) % Baso % (Auto) 0.5 (0-2) % Neut # (Auto) 8900 H (6858-8549) /uL Lymph # (Auto) 2600 (8070-0210) /uL Hidalgo # (Auto) 500 (0-900) /uL Eos # (Auto) 100 (0-450) /uL Baso # (Auto) 100 (0-100) /uL PT 11.3 (10.1-12.7) SECONDS INR 1.0 (0.9-1.3) Sodium 136 L (137-145) mmol/L Potassium 3.5 (3.4-5.1) mmol/L Chloride 105 (98-107) mmol/L Carbon Dioxide 23 (22-32) mmol/L BUN 4 L (7-17) mg/dL Creatinine 0.43 L (0.52-1.04) mg/dL Estimated GFR > 60.0 (>60) mL/min BUN/Creatinine Ratio 9.3 (6-22) Glucose 98 (70-100) mg/dL Calcium 9.6 (8.4-10.2) mg/dL Total Bilirubin 0.4 (0.2-1.3) mg/dL AST 25 (14-36) IU/L ALT 21 (<35) IU/L Alkaline Phosphatase 84 (38-126) U/L Total Protein 7.5 (6.3-8.2) g/dL Albumin 4.1 (3.5-5.0) g/dL Globulin 3.4 (1.7-4.1) g/dL Albumin/Globulin Ratio 1.2 (1.0-2.8) HCG, Quant 40999 mIU/mL Imaging Data Left rib x-rays with chest: Radiologist's Impression: [address] [address] XRay Report Signed Patient: Damaris Fleming JMR#: [id number] : 1990Acct:[id number] Age/Sex: FDate of Service: 02/16/20 Loc: ED Accession Number: [id number] Procedure: XR ribs LT min 3V w CXR1V Ordering Provider: Lloyd Wang MD PROCEDURE: XR RIBS LT MIN 3V W CXR1V INDICATIONS: please shield pelvis/fall/injury TECHNIQUE: 2 views of the left ribs were acquired, along with a single view chest. COMPARISON: None. FINDINGS: Surgical changes and devices: None. Bones and chest wall: No fractures or dislocations. No suspicious bony lesions. Overlying soft tissues appear unremarkable. Lungs and pleura: No pleural effusions or pneumothorax. Lungs appear clear. Mediastinum: Mediastinal contours appear normal. Heart size is normal. IMPRESSION: No displaced left rib fracture. Lungs are clear. Dictated by: Fahad Robertson M.D. on 02/16/2020 at 19:08 Approved by: Fahad Robertson M.D. on 02/16/2020 at 19:11 US - abdomen: Radiologist's Impression: [place] [address] Ultrasound Report Signed Patient: Damaris Fleming JMR#: [id number] : 1990Acct:[id number] Age/Sex: FDate of Service: 02/16/20 Loc: ED Accession Number: [id number] Procedure: US abdomen limited Ordering Provider: Lloyd Wang MD PROCEDURE: US ABDOMEN LIMITED INDICATIONS: LEFT FLANK PAIN POST FALL TECHNIQUE: Real-time scanning was performed of the abdominal and retroperitoneal organs, with image documentation. COMPARISON: [facility], , XR RIBS LT MIN 3V W CXR1V, 02/16/2020, 18:29. [facility], US ABDOMEN COMPLETE, 09/05/2018, 20:55. [facility], ABDOMEN LIMITED, 11/04/2015, 14:00. FINDINGS: Left kidney: Kidney is normal in size and echotexture. Left kidney measures 10.9 cm cm long. No hydronephrosis or nephrolithiasis. No solid masses. Spleen: Measures 9.3 cm. No laceration or perisplenic fluid. No free fluid in the 4 abdominal quadrants. Gravid uterus. A heart rate 147 bpm. IMPRESSION: No left kidney or splenic injury identified. No free fluid. Dictated by: Fahad Robertson M.D. on 02/16/2020 at 19:33 Approved by: Fahad Robertson M.D. on 02/16/2020 at 19:38 MDM Narrative Medical decision making narrative: Patient to be admitted observed per OBGYN Time 8:53 p.m.. Jessica marine propulsion technician did come back to do left flank ultrasound and no fluid collection seen in soft tissue of the left flank Discharge Plan Departure Patient Disposition: Admitted as Observation Clinical Impression: Placental abruption Qualifiers: Trimester: unspecified trimester Qualified Code(s): O45.90 - Premature separation of placenta, unspecified, unspecified trimester Contusion of back Qualifiers: Encounter type: initial encounter Laterality: left Qualified Code(s): S20.222A - Contusion of left back wall of thorax, initial encounter Discharge Date/Time: 02/17/20 00:40 Admit Date/Time: 02/17/20 00:15 Admit Provider: Davina Saravia
--- NOTE | 2020-02-16 18:34 | DI.RAD.S_ITS ---
PROCEDURE: XR RIBS LT MIN 3V W CXR1V INDICATIONS: please shield pelvis/fall/injury TECHNIQUE: 2 views of the left ribs were acquired, along with a single view chest. COMPARISON: None. FINDINGS: Surgical changes and devices: None. Bones and chest wall: No fractures or dislocations. No suspicious bony lesions. Overlying soft tissues appear unremarkable. Lungs and pleura: No pleural effusions or pneumothorax. Lungs appear clear. Mediastinum: Mediastinal contours appear normal. Heart size is normal. IMPRESSION: No displaced left rib fracture. Lungs are clear. Dictated by: Fahad Robertson M.D. on 02/16/2020 at 19:08 Approved by: Fahad Robertson M.D. on 02/16/2020 at 19:11
[2020-02-16 18:35] LABS: Add Manual Diff / Slide Review NO; Basophils Absolute Auto 100 /uL (0-100); Basophils Percent Auto 0.5 % (0-2); Eosinophils Absolute Auto 100 /uL (0-450); Eosinophils Percent Auto 0.5 % (2-4); Hematocrit 38.5 % (36-46); Hemoglobin 13.3 g/dL (12.0-16.0); Lymphocytes Absolute Auto 2600 /uL (1100-4500); Lymphocytes Percent Auto 21.2 % (25-40); Mean Corpuscular HGB Conc 34.5 % (30-36); Mean Corpuscular Hemoglobin 31.7 PG (26-34); Mean Corpuscular Volume 92.2 fL (80-100); Monocytes Absolute Auto 500 /uL (0-900); Monocytes Percent Auto 4.5 % (3-14); Neutrophils Absolute Auto 8900 /uL (1500-7000); Neutrophils Percent Auto 73.3 % (50-75); Platelet Count 320 X10^3/uL (150-400); Red Blood Cell Count 4.17 X10^6/uL (4.0-5.2); Red Cell Distribution Width 12.9 % (11.6-14.8); White Blood Cell Count 12.2 X10^3/uL (4.5-11.0)
[2020-02-16 18:36] LABS: Prothrombin Time 11.3 SECONDS (10.1-12.7)
[2020-02-16 18:41] LABS: Alanine Aminotransferase 21 IU/L (<35); Albumin 4.1 g/dL (3.5-5.0); Albumin Globulin Ratio 1.2 (1.0-2.8); Alkaline Phosphatase 84 U/L (38-126); Aspartate Aminotransferase 25 IU/L (14-36); BUN Creatinine Ratio 9.3 (6-22); Bilirubin Total 0.4 mg/dL (0.2-1.3); Blood Urea Nitrogen 4 mg/dL (7-17); Calcium 9.6 mg/dL (8.4-10.2); Carbon Dioxide 23 mmol/L (22-32); Chloride 105 mmol/L (98-107); Estimated Glomerular Filt Rate > 60.0 mL/min (>60); Globulin 3.4 g/dL (1.7-4.1); Glucose 98 mg/dL (70-100); HEMOLYSIS < 15 (0-50); Potassium 3.5 mmol/L (3.4-5.1); Sodium 136 mmol/L (137-145); Total Protein 7.5 g/dL (6.3-8.2)
[2020-02-16 18:59] LABS: HCG Quantitative /Beta subunit 54068 mIU/mL
--- NOTE | 2020-02-16 21:36 | PM.OBHP.1 ---
OB HPI History of Present Condition Chief complaint: FALL LEFT SIDE LOWER BACK BELLY PAIN 16 WKS PREGNA Narrative: Damaris Fleming is a 29 year old female who is currently 15 weeks 3 days . She is being admitted for observation after a fall. She was standing on a high chair reaching for something when her dog ran into the chair. She fell backwards hitting her left back and left side side on the bed post, on falling on the floor. Did not hit her abdomen. About an hour after it occurred, she developed severe uterine cramping and had some vaginal spotting on wiping. Evaluation Evaluation Laboratory results: Laboratory Tests 02/16/20 02/16/20 02/16/20 18:15 18:15 18:15 WBC 12.2 H RBC 4.17 Hgb 13.3 Hct 38.5 MCV 92.2 MCH 31.7 MCHC 34.5 RDW 12.9 Plt Count 320 Neut % (Auto) 73.3 Lymph % (Auto) 21.2 L Todd % (Auto) 4.5 Eos % (Auto) 0.5 L Baso % (Auto) 0.5 Neut # (Auto) 8900 H Lymph # (Auto) 2600 Todd # (Auto) 500 Eos # (Auto) 100 Baso # (Auto) 100 PT 11.3 INR 1.0 Sodium 136 L Potassium 3.5 Chloride 105 Carbon Dioxide 23 BUN 4 L Creatinine 0.43 L Estimated GFR > 60.0 BUN/Creatinine Ratio 9.3 Glucose 98 Calcium 9.6 Total Bilirubin 0.4 AST 25 ALT 21 Alkaline Phosphatase 84 Total Protein 7.5 Albumin 4.1 Globulin 3.4 Albumin/Globulin Ratio 1.2 HCG, Quant 71352 Partial report of OB ultrasound as below. PROCEDURE: US OB LIMITED INDICATIONS: Bleeding in after fall and Left kidney pain OUTSIDE/PRIOR DATING DATA: Last menstrual period (LMP): 11/01/19. LMP-based estimated date of delivery (WILMER): 08/07/20. TECHNIQUE: Real-time scanning was performed of the fetus, with image documentation and biometric measurements. Endovaginal scanning: Not performed [facility], 13:00. FINDINGS: General: A single living intrauterine gestation is present. heart rate: 158 beats per minute. biometrics: Biparietal diameter: 2.8 cm, 15 weeks and 1 day Head circumference: 10.6 cm, 15 weeks and 1 day Abdominal circumference: 9.2 cm, 15 weeks and 3 days Femur length: 1.5 cm, 14 weeks and 4 days Estimated gestational age from initial scan: not applicable. Composite gestational age from present scan: 15 weeks and 1 day Estimated weight and percentile: Not measured Other: There is an apparent enlarging heterogeneous collection noted between the placenta and uterus measuring approximately 7.2 cm x 2.9 cm x 5.0 cm. This measured 4.2 cm x 0.9 cm from exam obtained earlier today. There is internal vascularity within this fluid collection. IMPRESSION: 1. Single living intrauterine gestation with an estimated sonographic gestational age of approximately 15 weeks and 1 day. 2. Enlarging, heterogeneous fluid collection with internal vascularity noted between the placenta and uterus is suspicious for placental abruption. Findings were discussed telephonically with Dr. Solitario at 1610 hrs. Dictated by: José Carrasco M.D. on 02/16/2020 at 16:08 Approved by: José Carrasco M.D. on 02/16/2020 at 16:16 Abdominal and retroperitoneal ultrasound showed no splenic injury. No free fluid in 4 abdominal quadrants. Left kidney normal in appearance. Rib x-ray showed no fracture. No pneumothorax. [facility] Medical History Anemia (Acute) Bronchitis (Acute) Dehydration (Acute ~02/04/20) Episode of syncope (Acute) Migraine (Acute) Multiparity (Acute) Stress (Acute) (spontaneous vaginal delivery) (Acute) Surgical History History of appendectomy (Acute ~10/2015) Family History Mother Heart palpitations Father Family estrangement Heroin addiction HIV (human immunodeficiency virus infection) Adopted Son Cardiac arrhythmia Cardiac related syncope Grandfather Diabetes mellitus Grandmother Myocardial infarction Hypertension Cardiomyopathy Grandfather Family estrangement Grandmother Family estrangement Family/Other Cervical cancer Social History marital status: unmarried,living together number of children: 2 household members: significant other and children pets and animals: Yes (X 1 Dog and X 1 Cat ) education level: college occupational status: unemployed current occupational exposures/hazards: No clay/rastafarian: Voodoo special clay needs: No Smoking Status: Never smoker second hand exposure: No alcohol intake: former substance use type: does not use Meds Home Medications and Allergies Home Medications Medication Instructions Recorded Confirmed Type prenat.vits,nisha,[id number] 1 tab PO DAILY 02/10/20 02/16/20 History Allergies Allergy/AdvReac Type Severity Reaction Status Date / Time No Known Drug Allergies Allergy Verified 02/16/20 17:29 Review of Systems Review of Systems Narrative: Positive for left back and flank pain. Positive for minimal vaginal bleeding with wiping vagina. Positive for severe lower abdominal cramping, progressed to constant lower abdominal discomfort over uterus, now improving. Denies leakage of fluid. Denies shortness of breath. Denies hematuria. Exam Vital Signs (past 8 hours): - 02/16/20 17:26 02/16/20 19:00 02/16/20 19:10 Temperature 97.8 F Pulse Rate 94 H 91 H 92 H Respiratory Rate 16 Blood Pressure 118/77 117/74 Pulse Oximetry 97 100 98 02/16/20 19:20 02/16/20 19:30 02/16/20 19:40 Temperature Pulse Rate 85 82 82 Respiratory Rate Blood Pressure 120/68 Pulse Oximetry 99 99 100 02/16/20 20:00 02/16/20 20:15 02/16/20 20:30 Temperature Pulse Rate 85 91 H 90 Respiratory Rate Blood Pressure 119/75 121/70 127/76 Pulse Oximetry 100 99 100 02/16/20 21:00 Temperature Pulse Rate 82 Respiratory Rate Blood Pressure 116/66 Pulse Oximetry 99 Oxygen Delivery Method Room Air Narrative Exam Narrative: General: Patient appeared uncomfortable with ambulating, movement. Unable to lie on back, left side. Now resting comfortably hours after initial evaluation, never resting in the ED Back: Wide approximately 12 x 8 cm area of edema left mid to lower back, apparent contusion. No visible bruising. Tender to palpation. Mildly tender over lower lumbar vertebrae. Mild tenderness over left lower posterior ribs Abdomen: Soft, nondistended. Moderately tender over lower abdomen in midline over the uterus. No upper abdominal tenderness Cervix: Closed/long in office at 1630 Objective Labs Result Diagrams: 02/16/20 18:15 02/16/20 18:15 Labs: Laboratory Results - last 24 hr 02/16/20 02/16/20 02/16/20 18:15 18:15 18:15 WBC 12.2 H RBC 4.17 Hgb 13.3 Hct 38.5 MCV 92.2 MCH 31.7 MCHC 34.5 RDW 12.9 Plt Count 320 Neut % (Auto) 73.3 Lymph % (Auto) 21.2 L Todd % (Auto) 4.5 Eos % (Auto) 0.5 L Baso % (Auto) 0.5 Neut # (Auto) 8900 H Lymph # (Auto) 2600 Todd # (Auto) 500 Eos # (Auto) 100 Baso # (Auto) 100 PT 11.3 INR 1.0 Sodium 136 L Potassium 3.5 Chloride 105 Carbon Dioxide 23 BUN 4 L Creatinine 0.43 L Estimated GFR > 60.0 BUN/Creatinine Ratio 9.3 Glucose 98 Calcium 9.6 Total Bilirubin 0.4 AST 25 ALT 21 Alkaline Phosphatase 84 Total Protein 7.5 Albumin 4.1 Globulin 3.4 Albumin/Globulin Ratio 1.2 HCG, Quant 04520 Assessment and Plan Assessment and Plan Assessment and Plan narrative: Assessment: 29-year-old with 15 week 3 day status post significant fall 1. Symptoms and ultrasound suspicious for partial abruption. Patient with significant symptoms, minimal bleeding and ultrasound showing probable enlarging retroplacental blood, suspicious for abruption. Increase risk for progressing to complete abruption and spontaneous miscarriage over the 1st 24 hours after the trauma. 2. Lower back contusion Plan: Admit for observation and to be close due to risk for progressing to complete abruption, delivery over next 12 hours yet. Discussed with patient, nothing to do to prevent a possible progression to delivery, miscarriage. Over the past several hours since seeing her 1st in the office, cramping and lower abdominal discomfort has significantly decreased. No further bleeding. I did give her option alternatively to go home from ED since symptoms improving. Hopefully cramping will remain settled and bleeding will not recur. Risk however if she did progress to full abruption overnight, of heavier bleeding at home or potential delivery at home. She prefers observation here overnight as recommended. Observe overnight. Tylenol for discomfort. Declined any stronger pain medication. Will avoid ibuprofen. Cold or heat packs to lower back. Patient with significant improvement in back discomfort with current mild warm pack. Time Spent with Patient Total time spent with greater than 50% in coordination of care (as documented) at patient's floor/unit and/or counseling patient:: 15-24 minutes
[2020-02-17] MEDS: ACETAMINOPHEN 325 MG TABLET 650 MG PO ×2 (00:47→09:00)
--- NOTE | 2020-02-17 00:50 | PC.NURSE ---
Pt sat up to take 650 Tylenol PO ordered and stated she is beginning to feel nauseous, and did not take Tylenol and began feeling abdominal cramps upon wheeling pt from ER to Floor for admission. Pt denied vaginal bleeding and admit nurse Eneida notified.
[2020-02-17 01:00] VITALS: BP 123/70; PULSE 83; RESP 18; TEMP 36.7; O2SAT 97
[2020-02-17 01:12] VITALS: BMI 33.5
[2020-02-17 05:00] VITALS: BP 109/56; PULSE 71; RESP 18; TEMP 36.8; O2SAT 97
--- NOTE | 2020-02-17 06:50 | PC.ADMIT ---
[address] [facility] Admission Note: The patient,Damaris Fleming,29 y/o, was given written information regarding hospital policies, unit procedures and contact persons. Patient's smoking status: Never smoker. Vital Signs - 8 hr 02/16/20 23:00 02/16/20 23:30 02/17/20 01:00 Temperature 98.1 F Pulse Rate 90 82 83 Respiratory Rate 18 Blood Pressure 108/68 107/59 L 123/70 Pulse Oximetry 97 98 97 02/17/20 05:00 Temperature 98.3 F Pulse Rate 71 Respiratory Rate 18 Blood Pressure 109/56 L Pulse Oximetry 97 Patient arrived via stretcher at 0100, transferred self to inpatient bed without difficulty, ambulated to bathroom SBA and urinated, no blood present in urine or when wiping. AxOx3, can make needs known. Recent hx of fall, did not assess an abrasion to site of impact on back. Support person, Paul, rooming in. VSS, saturating WNL on RA, c/o abdominal cramping r/t to fall and placental abruption. Had initial c/o nausea but resolved without intervention. High fall risk d/t recent fall and c/o weakness. Bed alarm on and functioning, call light in reach and demonstrated use.
[2020-02-17 09:33] VITALS: BP 117/76; PULSE 84; RESP 16; TEMP 37.1; O2SAT 96
[2020-02-17 09:37] LABS: Add Manual Diff / Slide Review NO; Basophils Absolute Auto 0 /uL (0-100); Basophils Percent Auto 0.5 % (0-2); Eosinophils Absolute Auto 100 /uL (0-450); Eosinophils Percent Auto 0.9 % (2-4); Hemoglobin 12.6 g/dL (12.0-16.0); Lymphocytes Absolute Auto 2400 /uL (1100-4500); Lymphocytes Percent Auto 28.9 % (25-40); Mean Corpuscular HGB Conc 34.9 % (30-36); Mean Corpuscular Hemoglobin 32.4 PG (26-34); Mean Corpuscular Volume 92.8 fL (80-100); Monocytes Absolute Auto 500 /uL (0-900); Monocytes Percent Auto 5.7 % (3-14); Neutrophils Absolute Auto 5300 /uL (1500-7000); Platelet Count 279 X10^3/uL (150-400); Red Blood Cell Count 3.88 X10^6/uL (4.0-5.2); Red Cell Distribution Width 12.9 % (11.6-14.8); White Blood Cell Count 8.3 X10^3/uL (4.5-11.0)
[2020-02-17] MEDS: ONDANSETRON 4 MG/2 ML INJ IV (09:38)
--- NOTE | 2020-02-17 11:43 | PM.PN.1 ---
Subjective Subjective Date Patient Seen: 02/17/20 Time Patient Seen: 10:30 Interval history: Patient did well overnight. Only mild back pain overnight. Cramping had resolved overnight. Was able to sleep fairly well. Reports some increased discomfort with ambulating to bathroom this morning, mostly back pain, and brief lower abdominal cramping which resolved. Had some nausea after the discomfort, which resolved with Zofran. Has nausea daily. No further vaginal bleeding since yesterday afternoon. Exam Vital Signs (past 8 hours): - 02/17/20 05:00 02/17/20 09:33 Temperature 98.3 F 98.8 F Pulse Rate 71 84 Respiratory Rate 18 16 Blood Pressure 109/56 L 117/76 Pulse Oximetry 97 96 Oxygen Delivery Method Room Air Oxygen Flow Rate 0 Narrative Exam Narrative: General: Appears comfortable. No acute distress Abdomen: Soft, nondistended. Mild tenderness over low left side of abdomen, over lower uterus. Much decreased from yesterday. Mildly tenderness left outer abdomen as well. No other abdominal tenderness. heart rate auscultated in lower abdomen at 1444 bpm. Extremities: No edema. No calf tenderness Objective Labs Result Diagrams: 02/17/20 08:25 02/16/20 18:15 Labs: Laboratory Results - last 24 hr 02/16/20 02/16/20 02/16/20 18:15 18:15 18:15 WBC 12.2 H RBC 4.17 Hgb 13.3 Hct 38.5 MCV 92.2 MCH 31.7 MCHC 34.5 RDW 12.9 Plt Count 320 Neut % (Auto) 73.3 Lymph % (Auto) 21.2 L [place] % (Auto) 4.5 Eos % (Auto) 0.5 L Baso % (Auto) 0.5 Neut # (Auto) 8900 H Lymph # (Auto) 2600 [place] # (Auto) 500 Eos # (Auto) 100 Baso # (Auto) 100 PT 11.3 INR 1.0 Sodium 136 L Potassium 3.5 Chloride 105 Carbon Dioxide 23 BUN 4 L Creatinine 0.43 L Estimated GFR > 60.0 BUN/Creatinine Ratio 9.3 Glucose 98 Calcium 9.6 Total Bilirubin 0.4 AST 25 ALT 21 Alkaline Phosphatase 84 Total Protein 7.5 Albumin 4.1 Globulin 3.4 Albumin/Globulin Ratio 1.2 HCG, Quant [id number] 02/17/20 08:25 WBC 8.3 RBC 3.88 L Hgb 12.6 Hct 36.0 MCV 92.8 MCH 32.4 MCHC 34.9 RDW 12.9 Plt Count 279 Neut % (Auto) 64.0 Lymph % (Auto) 28.9 [place] % (Auto) 5.7 Eos % (Auto) 0.9 L Baso % (Auto) 0.5 Neut # (Auto) 5300 Lymph # (Auto) 2400 [place] # (Auto) 500 Eos # (Auto) 100 Baso # (Auto) 0 PT INR Sodium Potassium Chloride Carbon Dioxide BUN Creatinine Estimated GFR BUN/Creatinine Ratio Glucose Calcium Total Bilirubin AST ALT Alkaline Phosphatase Total Protein Albumin Globulin Albumin/Globulin Ratio HCG, Quant Assessment & Plan Assessment and plan (1) Placental abruption: Problem details: partial, stable, without delivery Qualifiers: Trimester: second trimester Qualified Code(s): O45.92 - Premature separation of placenta, unspecified, second trimester Status: Acute (2) Contusion of back: Qualifiers: Encounter type: subsequent encounter Laterality: left Qualified Code(s): S20.222D - Contusion of left back wall of thorax, subsequent encounter Status: Acute Assessment & Plan narrative: Patient did well overnight, stable. No further bleeding. Cramping resolved to rare. Will discharge home. Follow-up in 1 week. Call earlier as needed bleeding more than spotting or return of significant cramping. Advised her to take it easy, off her feet today. May gradually increase activity tomorrow. Ice pack or warm compress is to left lower back, as needed comfort. She finds more relief with the warm pack. Tylenol for discomfort. COVID-19 COVID-19 status: Not tested Time Spent With Patient Time with patient: less than 15 minutes Quality VTE Deep Vein Thrombosis/Pulmonary Embolism Present on Admission: No
--- NOTE | 2020-02-17 12:13 | PM.DS.1 ---
History of Present Illness History of Present Illness Date Patient Seen: 02/17/20 Time Patient Seen: 10:30 Date of Onset of Symptoms: 02/16/20 Chief complaint: FALL LEFT SIDE LOWER BACK BELLY PAIN 16 WKS PREGNA Narrative: Damaris Fleming is a 29 year old female who is currently 15 weeks 4 days . She was admitted for observation after a fall for probable placental abruption. She fell from standing on a chair and hit her back and side. She then developed uterine cramping, then constant lower abdominal tenderness over the uterus, spotting and ultrasound suspicious for abruption. Ultrasound appeared to show increased size and probable retroplacental blood over few hours. She also had significant left lower back pain, having hit her back and left flank when she fell. Discharge Providers Provider Date of admission: 02/17/20 00:15 Discharge Date: 02/17/20 Consults: 02/17/20 01:29 Consult to Dietitian, Adult Routine Comment: Reason For Exam: Reflexed from admission Discharge provider: Davina Solitario MD Summary Hospital Course Discharge Diagnosis: Partial placental abruption, stable Left lower back contusion Hospital Course: The patient was seen in the office to evaluate the , then evaluated in the ED for the back pain and a left lower back contusion. She had an OB ultrasound in Radiology prior to going to the ED which showed a retroplacental suspicious for blood, but also some internal vascularity seen within this area. Area was increasing in size from her ultrasound in the office. Clinically she had symptoms suspicious for abruption. She had developed menstrual cramping an hour after her fall and noted vaginal blood with wiping. She then developed constant discomfort over her uterus. Her cervix remained closed and long. With clinical signs of possible abruption and ultrasound findings of possible abruption, with the worsening pain she was admitted overnight for observation due to risk of progressing to full abruption and miscarriage. Her pain significantly decreased over the next few hours and cramping resolved. Only had 1 cramping this morning after ambulating. She had no further bleeding overnight. heart rate normal this a.m. in 140s. Her hemoglobin is stable. Her back discomfort is improved. She had evaluation where she hit her back and had evaluation for abdominal trauma. She had a negative rib x-ray, and no signs of pneumothorax.. Left kidney ultrasound was normal. Abdominal ultrasound showed a normal spleen. No free fluid in 4 quadrants. Overnight her back discomfort significantly decreased as well. Warm packs to her back were helping her discomfort. Exam Vital Signs (past 8 hours): - 02/17/20 05:00 02/17/20 09:33 Temperature 98.3 F 98.8 F Pulse Rate 71 84 Respiratory Rate 18 16 Blood Pressure 109/56 L 117/76 Pulse Oximetry 97 96 Oxygen Delivery Method Room Air Oxygen Flow Rate 0 Narrative Exam Narrative: Exam Narrative: General: Appears comfortable. No acute distress Abdomen: Soft, nondistended. Mild tenderness over low left side of abdomen, over lower uterus. Much decreased from yesterday. Mildly tenderness left outer abdomen as well. No other abdominal tenderness. heart rate auscultated in lower abdomen at 1444 bpm. Extremities: No edema. No calf tenderness Objective Labs Result Diagrams: 02/17/20 08:25 02/16/20 18:15 Labs: Laboratory Results - last 24 hr 02/16/20 02/16/20 02/16/20 18:15 18:15 18:15 WBC 12.2 H RBC 4.17 Hgb 13.3 Hct 38.5 MCV 92.2 MCH 31.7 MCHC 34.5 RDW 12.9 Plt Count 320 Neut % (Auto) 73.3 Lymph % (Auto) 21.2 L [place] % (Auto) 4.5 Eos % (Auto) 0.5 L Baso % (Auto) 0.5 Neut # (Auto) 8900 H Lymph # (Auto) 2600 [place] # (Auto) 500 Eos # (Auto) 100 Baso # (Auto) 100 PT 11.3 INR 1.0 Sodium 136 L Potassium 3.5 Chloride 105 Carbon Dioxide 23 BUN 4 L Creatinine 0.43 L Estimated GFR > 60.0 BUN/Creatinine Ratio 9.3 Glucose 98 Calcium 9.6 Total Bilirubin 0.4 AST 25 ALT 21 Alkaline Phosphatase 84 Total Protein 7.5 Albumin 4.1 Globulin 3.4 Albumin/Globulin Ratio 1.2 HCG, Quant [id number] 02/17/20 08:25 WBC 8.3 RBC 3.88 L Hgb 12.6 Hct 36.0 MCV 92.8 MCH 32.4 MCHC 34.9 RDW 12.9 Plt Count 279 Neut % (Auto) 64.0 Lymph % (Auto) 28.9 [place] % (Auto) 5.7 Eos % (Auto) 0.9 L Baso % (Auto) 0.5 Neut # (Auto) 5300 Lymph # (Auto) 2400 [place] # (Auto) 500 Eos # (Auto) 100 Baso # (Auto) 0 PT INR Sodium Potassium Chloride Carbon Dioxide BUN Creatinine Estimated GFR BUN/Creatinine Ratio Glucose Calcium Total Bilirubin AST ALT Alkaline Phosphatase Total Protein Albumin Globulin Albumin/Globulin Ratio HCG, Quant Discharge Plan Discharge Plan Patient Disposition: Home Discharge orders & Medications Prescriptions: New acetaminophen 325 mg Tablet 650 mg PO Q6HR PRN (Reason: Pain, Moderate) Qty: 0 RF: 0 Continued prenat.vits,nisha,icx-qoal-fwden Tablet 1 tab PO DAILY RF: 0 Follow up/Referrals: Davina Solitario MD [Physician] - 02/24/20 9:30 am Diet/Activity/Treatments Diet: Regular Activity: take it easy today, mostly sitting except up to bathroom and short walks in house. Then may gradually increase activity as you tolerate with your back pain. No intercourse until advised it is okay at follow-up visit. Cold/Heat Therapy: Hot and cold packs to left back as needed for comfort. Skin/Wound/Dressing Care Other wound treatment: Call for severe menstrual type cramping, vaginal bleeding more than spotting or leakage of clear fluid from the vagina. Visit Report/Discharge Packet Instructions: Placental Abruption, Acetaminophen Visit Report Forms: Patient Portal/API, Stroke Signs & Symptoms Discharge Data Attending Provider: Davina Solitario Admit Date/Time: 02/17/20 00:15 Quality VTE Deep Vein Thrombosis/Pulmonary Embolism Present on Admission: No
== END 2020-02-17 12:00 | disposition home or self-care (01) ==
LOC: ED 20:07 → AC 02-17 00:19 → ICU 02-17 00:55
PROVIDERS: Admitting Provider Obstetrics & Gynecology; Emergency Provider Emergency Medicine; Visit Provider Obstetrics & Gynecology
DX: O45.92 Premature separation of placenta, unspecified, second trimester (principal); R10.9 Unspecified abdominal pain; S20.229A Contusion of unspecified back wall of thorax, initial encounter; Z3A.16 16 weeks gestation of pregnancy; W01.190A Fall on same level from slipping, tripping and stumbling with subsequent striking against furniture, initial encounter; Y92.003 Bedroom of unspecified non-institutional (private) residence as the place of occurrence of the external cause
CPT/HCPCS: 36415; 71101; 76705; 80053; 84702; 85025; 85610; 96374; 99284; G0378; J2405

== ENCOUNTER → 2020-02-24 16:40 | Outpatient (CLI) | payer OTHER, SELFPAY ==
[2020-02-17 01:12] VITALS: BMI 33.5
[2020-02-26 20:36] LABS: AFP, Serum 21.6 ng/mL (.); Calc Gestational Age Ultrasound (.); Estriol, Free 0.73 ng/mL (.); Inhibin A, Dimeric 177.54 pg/mL (.); Inhibin A, MoM 1.17 (.); Maternal Ethnicity Other (.); Maternal Weight 174 lbs (.); Number of Fetuses No (.); OSBR Risk 1 IN 10000 (.); Results Report (.); Test Results *Screen Negative* (.); hCG, MoM 1.23 (.); hCG, Serum 41157 mIU/mL (.)
== END ==
PROVIDERS: Referring Provider Obstetrics & Gynecology; Visit Provider Obstetrics & Gynecology
DX: Z34.82 Encounter for supervision of other normal pregnancy, second trimester (principal); Z3A.16 16 weeks gestation of pregnancy
CPT/HCPCS: 36415; 82105; 82677; 84702; 86336

== ENCOUNTER → 2020-03-21 13:17 | Outpatient (CLI) | payer OTHER, SELFPAY ==
--- NOTE | 2020-03-21 13:18 | DI.US.S_ITS ---
PROCEDURE: US OB >= 14 WEEKS FETUS INDICATIONS: ANATOMY SCAN OUTSIDE/PRIOR DATING DATA: Last menstrual period (LMP): 11/01/19 . LMP-based estimated date of delivery (WILMER): 08/07/20 . First dating scan (date and location): This examination . Estimated date of delivery (WILMER) from first dating scan: 08/08/20 . TECHNIQUE: Real-time scanning was performed of the fetus, with image documentation and biometric measurements. Endovaginal scanning: Not performed COMPARISON: [facility], , OB >= 14 WEEKS FETUS, 02/24/2020, 12:33. FINDINGS: General: A single living intrauterine gestation is present. Presentation: Vertex. Placenta: Placental position is anterior , without previa. Amniotic fluid index: 11.3 cm, normal range is 5-24 cm. heart rate: 139 beats per minute. Maternal cervical canal: 3.2 cm long. Normal lower limit is 2.5 cm. biometrics: Biparietal diameter: 4.6 cm, 20 weeks 0 days Head circumference: 17.2 cm, 19 weeks 5 days Abdominal circumference: 4.6 cm, 19 weeks 6 days Femur length: 2.9 cm, 18 weeks 6 days Estimated gestational age from initial scan: 20 weeks 1 day. Composite gestational age from present scan: 19 weeks 4 day Estimated weight and percentile: 295 g, 15th percentile Measurement variability for biometric dating: +/- 7 days from 14 weeks to 15 weeks 6 days gestation, +/- 10 days from 16 weeks to 21 weeks 6 days gestation, +/- 2 weeks from 22 weeks to 27 weeks 6 days gestation, +/- 3 weeks for 28 weeks gestation or later. weight reference: 4500 g or EFW >90/95% is considered macrosomia or large for gestational age. EFW <10% is small for gestational age. EFW 5% or less is considered intra-uterine growth restriction. Anatomic survey: Neuro: Ventricles are non-dilated at less than 10 mm. Cisterna magna is normal at 3-11 mm. Cerebellum is normal in size and morphology. Nuchal skin fold: Normal at less than 6 mm between 14-21 weeks gestational age. Face: Nose and lips, facial profile are normal. Spine: No evidence for spina bifida. Heart: 4-chambered heart is present, with normal ventricular outflow tracts. Diaphragm: Diaphragm is intact. Stomach: Left-sided stomach is present. Kidneys: No hydronephrosis. Normal is less than 5 mm in 2nd trimester, less than 7 mm in 3rd trimester. Cord: 3-vessel cord has orthotopic insertion. Bladder: Normal in size. Extremities: All 4 extremities identified. Previously described area of hemorrhage suggesting placental abruption is decreased in size measuring 4.3 x 2.2 x 2.0 cm, previously 5.0 x 7.2 x 2.9 cm. IMPRESSION: Single living fetus in vertex presentation. Expected interval growth. Previous placental abruption appears decreased in size as above Normal anatomic survey Dictated by: Jer Walker M.D. on 03/21/2020 at 16:14 Approved by: Jer Walker M.D. on 03/21/2020 at 16:20
== END ==
PROVIDERS: Referring Provider Obstetrics & Gynecology; Visit Provider Obstetrics & Gynecology
DX: Z34.82 Encounter for supervision of other normal pregnancy, second trimester (principal); Z3A.19 19 weeks gestation of pregnancy
CPT/HCPCS: 76811

== ENCOUNTER → 2020-05-19 15:32 | Outpatient (CLI) | payer OTHER, SELFPAY | PROVIDERS: PCP Obstetrics & Gynecology; Visit Provider Obstetrics & Gynecology | DX: Z34.82 Encounter for supervision of other normal pregnancy, second trimester (principal); Z3A.28 28 weeks gestation of pregnancy | CPT/HCPCS: 87086 ==

== ENCOUNTER 2020-05-21 21:42 | Outpatient (CLI) | payer OTHER, SELFPAY ==
--- NOTE | 2020-05-23 08:20 | P.TNLD_ITS ---
Visit Information Visit Information Date of evaluation: 05/21/20 Primary OB Provider: Zoila Ayoub On-call OB Provider: Abbie Avalos Reason for Evaluation: Yes non-stress test Comments/Additional reasons for admission: Patient is a 30-year-old at 29 weeks gestation who called concerned about spotting and passage of a thumb size blood clot several hours prior. complicated by placental abruption at 15 weeks which has been decreasing in size. She has been having some spotting since then but no heavy bleeding so was alarmed by the passage of a clot. Reports good movement and denies contractions or leaking of fluid. Vital Signs Vital Signs: Temperature 36.2? blood pressure 121/61 heart rate 100 PFSH Medical History Anemia (Acute ~2008) Bronchitis (Acute) Chicken pox (Resolved) Dehydration (Acute ~02/04/20) Episode of syncope (Acute) Irregular menstrual cycle (Chronic ~2008) Migraine (Acute) Multiparity (Acute) Stress (Acute) (spontaneous vaginal delivery) (Acute) Surgical History Anesthesia (Resolved) History of appendectomy (Acute ~10/2015) Family History Mother Heart palpitations Father Family estrangement Heroin addiction HIV (human immunodeficiency virus infection) Adopted Son Cardiac arrhythmia Cardiac related syncope Grandfather Diabetes mellitus Grandmother Myocardial infarction Hypertension Cardiomyopathy Grandfather Family estrangement Grandmother Family estrangement Family/Other Cervical cancer Social History marital status: unmarried,living together number of children: 2 household members: significant other and children pets and animals: Yes (X 1 Dog and X 1 Cat ) education level: college occupational status: unemployed current occupational exposures/hazards: No clay/jehovah's witness: Confucianist special clay needs: No Smoking Status: Never smoker second hand exposure: No alcohol intake: former substance use type: does not use Evaluation Evaluation Baseline heart rate: 140 Variability: Moderate (11-25) monitor accelerations: Present monitor decelerations: Absent Diagnosis, Plan/Disposition Final Diagnosis (1) 29 weeks gestation of : Status: Acute (2) Placental abruption: Status: Acute Problem details: partial, stable, without delivery Plan/Disposition Plan: 30 year old at 29 weeks gestation with known placental abruption who came in with concerns of bleeding. She has been spotting throughout the but passed a thumb sized clot prior to arrival. No further bleeding at home or in the center. NST reactive without concerns. No contractions on the monitor. Patient was reassured and advised to follow up with Dr. Ayoub as scheduled or call if new concerns. OB Disposition: home
== END 2020-05-21 22:30 | disposition home or self-care (01) ==
LOC: OB 05-23 15:08
PROVIDERS: PCP Obstetrics & Gynecology; Referring Provider Family Medicine; Visit Provider Family Medicine
DX: O45.93 Premature separation of placenta, unspecified, third trimester (principal); Z3A.29 29 weeks gestation of pregnancy
CPT/HCPCS: 59025; G0378; G0379

== ENCOUNTER → 2020-05-25 12:26 | Outpatient (CLI) | payer OTHER, SELFPAY ==
[2020-05-25 12:47] LABS: Bacteria Urine None Seen; WBC Urine None Seen (0-5/HPF)
[2020-05-25 13:08] LABS: Alanine Aminotransferase 11 IU/L (<35)
[2020-05-25 13:24] LABS: Add Manual Diff / Slide Review NO; Basophils Absolute Auto 0 /uL (0-100); Basophils Percent Auto 0.4 % (0-2); Eosinophils Absolute Auto 100 /uL (0-450); Eosinophils Percent Auto 0.5 % (2-4); Hematocrit 30.9 % (36-46); Hemoglobin 10.4 g/dL (12.0-16.0); Lymphocytes Absolute Auto 2100 /uL (1100-4500); Lymphocytes Percent Auto 19.1 % (25-40); Mean Corpuscular HGB Conc 33.6 % (30-36); Mean Corpuscular Hemoglobin 29.8 PG (26-34); Mean Corpuscular Volume 88.7 fL (80-100); Monocytes Absolute Auto 600 /uL (0-900); Monocytes Percent Auto 5.9 % (3-14); Neutrophils Absolute Auto 8200 /uL (1500-7000); Neutrophils Percent Auto 74.1 % (50-75); Platelet Count 374 X10^3/uL (150-400); Red Blood Cell Count 3.49 X10^6/uL (4.0-5.2); Red Cell Distribution Width 12.9 % (11.6-14.8); White Blood Cell Count 11.1 X10^3/uL (4.5-11.0)
[2020-05-25 13:45] LABS: Appearance Urine UA CLEAR; Bilirubin Urine UA NEGATIVE (NEGATIVE); Color Urine UA YELLOW; Glucose Urine UA NEGATIVE (Negative); Ketones Urine UA NEGATIVE (NEGATIVE); Leukocyte Esterase Urine UA NEGATIVE (NEGATIVE); Nitrite Urine UA NEGATIVE (Negative); Occult Blood Urine UA 1+ (Negative); Protein Urine UA NEGATIVE (Negative); Specific Gravity Urine UA 1.015 (1.000-1.035)
[2020-05-25 13:57] LABS: RBC Urine 1-5/HPF (0-5/HPF)
[2020-05-25 13:58] LABS: Culture Indicated Urine Cult Not Indicated
[2020-05-25 14:50] LABS: Alanine Aminotransferase 11 IU/L (<35); Albumin 3.4 g/dL (3.5-5.0); Albumin Globulin Ratio 1.1 (1.0-2.8); Alkaline Phosphatase 120 U/L (38-126); Aspartate Aminotransferase 17 IU/L (14-36); BUN Creatinine Ratio 12.8 (6-22); Bilirubin Total 0.3 mg/dL (0.2-1.3); Blood Urea Nitrogen 5 mg/dL (7-17); Calcium 9.1 mg/dL (8.4-10.2); Carbon Dioxide 24 mmol/L (22-32); Chloride 107 mmol/L (98-107); Estimated Glomerular Filt Rate > 60.0 mL/min (>60); Globulin 3.1 g/dL (1.7-4.1); Glucose 86 mg/dL (70-100); HEMOLYSIS < 15 (0-50); Sodium 136 mmol/L (137-145); Total Protein 6.5 g/dL (6.3-8.2); Uric Acid 3.9 mg/dL (2.5-6.2)
== END ==
PROVIDERS: PCP Obstetrics & Gynecology; Referring Provider Obstetrics & Gynecology; Visit Provider Obstetrics & Gynecology
DX: O14.90 Unspecified pre-eclampsia, unspecified trimester (principal); Z3A.29 29 weeks gestation of pregnancy
CPT/HCPCS: 36415; 80053; 81001; 82565; 84460; 84520; 84550; 85025

== ENCOUNTER 2020-07-12 03:20 | Outpatient (CLI) | payer OTHER, SELFPAY ==
--- NOTE | 2020-07-12 07:34 | P.TNLD_ITS ---
Visit Information Visit Information Date of evaluation: 07/12/20 Primary OB Provider: Zoila Ayoub On-call OB Provider: Abbie Avalos Reason for Evaluation: Yes non-stress test Comments/Additional reasons for admission: 30 year old at 36 weeks gestation with worsening right scapular pain not relieved with massage by partner, heat or Tylenol. The pain is making her nauseated and dry heave. No know h/o cholelithiasis. complicated by appendectomy in the second trimester as well as placental abruption which stabilized and has not recurred. Patient denied bleeding, painful contractions, leaking or decreased movement. Vital Signs Vital Signs: T 35.8 BP 100/72 HR 92 PFSH Medical History (Updated 07/12/20 @ 07:36 by Abbie Avalos DO) Anemia (~2008) Bronchitis Chicken pox Dehydration (~02/04/20) Episode of syncope Irregular menstrual cycle (~2008) Migraine Multiparity Stress (spontaneous vaginal delivery) Surgical History Anesthesia History of appendectomy (~10/2015) Family History Mother Heart palpitations Father Family estrangement Heroin addiction HIV (human immunodeficiency virus infection) Adopted Son Cardiac arrhythmia Cardiac related syncope Grandfather Diabetes mellitus Grandmother Myocardial infarction Hypertension Cardiomyopathy Grandfather Family estrangement Grandmother Family estrangement Family/Other Cervical cancer Social History marital status: unmarried,living together number of children: 2 household members: significant other and children pets and animals: Yes (X 1 Dog and X 1 Cat ) education level: college occupational status: unemployed current occupational exposures/hazards: No clay/presybeterian: Anabaptist special clay needs: No Smoking Status: Never smoker second hand exposure: No alcohol intake: former substance use type: does not use Evaluation Evaluation Baseline heart rate: 130 Variability: Moderate (11-25) monitor accelerations: Present monitor decelerations: Absent Uterine Contraction Intensity: Mild Category of Tracing: Reactive Diagnosis, Plan/Disposition Final Diagnosis (1) Right upper quadrant abdominal pain: Status: Acute (2) 36 weeks gestation of : Status: Acute Plan/Disposition Plan: 30 year old at 36+3 days gestation with right scapular pain, nausea and dry heaving. BP normal ruling out pre-eclampsia/HELLP syndrome. NST reactive. Patient sent to the ER for further work up with labs and US. OB Disposition: home
== END 2020-07-12 03:50 | disposition home or self-care (01) ==
LOC: OB 07:40
PROVIDERS: PCP Obstetrics & Gynecology; Referring Provider Family Medicine; Visit Provider Family Medicine
DX: R10.11 Right upper quadrant pain (principal); Z3A.36 36 weeks gestation of pregnancy
CPT/HCPCS: 59025; G0378; G0379

== ENCOUNTER 2020-07-12 03:51 | Emergency (ER) | payer OTHER, SELFPAY ==
[2020-07-12] VITALS (7 sets, daily range): BP systolic 100–130; BP diastolic 54–73; PULSE 82–100; RESP 14–18; TEMP 36.6; O2SAT 96–98; BMI 36.5
--- NOTE | 2020-07-12 03:57 | ED_ITS ---
HPI - Abdominal Pain General Chief Complaint: Abdominal Pain Stated Complaint: Rt shoulder pain Time Seen by Provider: 07/12/20 03:52 Source: patient Mode of arrival: Ambulatory Limitations: no limitations History of Present Illness HPI narrative: 30-year-old female nonsmoker with noncontributory medical history presents as a at 36 weeks 2 days presents at the request of her OB provider for ongoing evaluation of right upper quadrant pain. This evening at about 8:00 p.m. she had some right upper quadrant pain with radiation to her right shoulder associated with nausea and vomiting. She has had no fever or chills and denies any jaundice. She has had no runny nose, sore throat or cough. She denies any recent injury. She has had no vaginal bleeding or discharge. She initially went to labor and delivery and had evaluation there, after obtaining a clear OB evaluation she was sent here for further workup. MD complaint: abdominal pain Onset (ago): hour(s) Pain Consistency: constant Location: RUQ Severity: moderate Quality: stabbing and sharp Radiation: back Relieving factors: nothing Exacerbating factors: nothing Associated symptoms: nausea and vomiting Related Data Home Medications Medication Instructions Recorded Confirmed prenat.vits,nisha,qlu-bfth-[id number] 1 tab PO DAILY 02/10/20 06/21/20 Previous Rx's Medication Instructions Recorded acetaminophen 650 mg PO Q6HR PRN #0 tab 02/17/20 promethazine 12.5 mg rectal 12.5 mg GA Q6H PRN #12 each 02/24/20 suppository Allergies Allergy/AdvReac Type Severity Reaction Status Date / Time No Known Drug Allergies Allergy Verified 07/12/20 04:07 Review of Systems Constitutional Constitutional: Denies chills, Denies fatigue, Denies fever(s), Denies frequent falls, Denies lethargy and Denies weakness Eyes Eyes: Denies change in vision, Denies eye discharge, Denies irritation and Denies loss of vision ENT Ears, Nose, Mouth, and Throat: Denies change in voice, Denies dizziness, Denies neck pain, Denies sore throat and Denies throat swelling Cardiovascular Cardiovascular: Denies chest pain, Denies irregular heart rhythm, Denies lightheadedness, Denies palpitations, Denies dyspnea, Denies dyspnea on exertion and Denies orthopnea Respiratory Respiratory: Denies cough, Denies dyspnea, Denies dyspnea on exertion and Denies wheezing Gastrointestinal Gastrointestinal: Reports abdominal pain, Denies change in bowel habits, Denies diarrhea, Reports nausea and Reports vomiting Musculoskeletal Musculoskeletal: Denies neck pain and Denies numbness Integumentary/Breasts Skin/Breast: Denies pruritus, Denies erythema, Denies rash and Denies wounds Neurologic Neurologic: Denies behavioral changes, Denies confusion, Denies dizziness, Denies frequent falls, Denies loss of vision, Denies numbness and Denies weakness Psychiatric Psychiatric: Denies anxiety, Denies behavioral changes, Denies confusion, Denies depression, Denies homicidal ideation and Denies suicidal ideation Endocrine Endocrine: Denies fatigue, Denies flushing and Denies palpitations Hematologic/Lymphatic Hematologic/Lymphatic: Denies easy bruising Allergic/Immunologic Allergic/Immunologic: Denies urticaria, Denies throat swelling and Denies wheezing Patient History Medical History (Updated 07/12/20 @ 05:35 by Jerzy Estes DO) Anemia (~2008) Bronchitis Chicken pox Dehydration (~02/04/20) Episode of syncope Irregular menstrual cycle (~2008) Migraine Multiparity Stress (spontaneous vaginal delivery) Surgical History Anesthesia History of appendectomy (~10/2015) Family History Mother Heart palpitations Father Family estrangement Heroin addiction HIV (human immunodeficiency virus infection) Adopted Son Cardiac arrhythmia Cardiac related syncope Grandfather Diabetes mellitus Grandmother Myocardial infarction Hypertension Cardiomyopathy Grandfather Family estrangement Grandmother Family estrangement Family/Other Cervical cancer Social History marital status: unmarried,living together number of children: 2 household members: significant other and children pets and animals: Yes (X 1 Dog and X 1 Cat ) education level: college occupational status: unemployed current occupational exposures/hazards: No clay/hoahaoism: Anglican special clay needs: No Smoking Status: Never smoker second hand exposure: No alcohol intake: former substance use type: does not use Smoking Status: Never smoker alcohol intake frequency: holidays/special occasions only Substance Use Type: does not use Exam Narrative Exam Narrative: GENERAL: [30] year old patient appears stated age. Well- nourished, well-developed patient, in mild distress. HEAD: Atraumatic. Normocephalic. EYES: Pupils equal round and reactive. Extraocular motions intact. No scleral icterus. No injection or drainage. ENT: Nose without bleeding, purulent drainage. Throat without erythema, tonsillar hypertrophy or exudate. Airway patent. NECK: Trachea midline. Non tender CARDIOVASCULAR: Regular rate and rhythm without murmurs, gallops, or rubs. RESPIRATORY: Clear to auscultation. Breath sounds equal bilaterally. No wheezes, rales, or rhonchi. GASTROINTESTINAL: Abdomen soft, gravid above umbilicus. TTP in RUQ EXTREMITIES: No edema or joint tenderness. BACK: Nontender without deformity or crepitance. No flank tenderness. NEURO: AOx3. SKIN: No rash or erythema of visible areas Initial Vital Signs Initial Vital Signs: Vital Signs Temperature 98 F 07/12/20 03:55 Pulse Rate 89 07/12/20 03:55 Respiratory Rate 18 07/12/20 03:55 Blood Pressure 111/59 L 07/12/20 03:55 Pulse Oximetry 98 07/12/20 03:55 Course Orders Ordered: ED Orders 07/12/20 03:30 UA Complete [Urinalysis and Microscopic] Stat 07/12/20 04:00 Complete Blood Count AUTO DIFF Stat Comprehensive Metabolic Panel Stat Lactate Dehydrogenase Stat 07/12/20 04:07 US abdomen limited Stat Discontinued Medications Sodium Chloride (Normal Saline 0.9%) 1,000 mls @ 125 mls/hr IV CONT RAJ Last Infusion: 07/12/20 05:53 Dose: 0 mls/hr Documented by: Admin: 07/12/20 04:21 Dose: 125 mls/hr Documented by: JESSIE Vital Signs Vital signs: Vital Signs - 8 hr 07/12/20 03:55 07/12/20 03:59 07/12/20 04:00 Temperature 98 F Pulse Rate 89 90 100 H Respiratory Rate 18 Blood Pressure 111/59 L 130/73 Pulse Oximetry 98 98 98 07/12/20 04:29 07/12/20 04:30 07/12/20 05:04 Temperature Pulse Rate 87 82 Respiratory Rate Blood Pressure 117/67 Pulse Oximetry 96 97 07/12/20 05:53 Temperature Pulse Rate 89 Respiratory Rate 14 Blood Pressure 100/54 L Pulse Oximetry 98 MDM - Abdominal Pain Lab Data Result diagrams: 07/12/20 04:00 07/12/20 04:00 Labs: Lab Results 07/12/20 07/12/20 07/12/20 Range/Units 03:30 04:00 04:00 WBC 11.0 (4.5-11.0) X10^3/uL RBC 3.83 L (4.0-5.2) X10^6/uL Hgb 10.0 L (12.0-16.0) g/dL Hct 31.1 L (36-46) % MCV 81.2 (80-100) fL MCH 26.1 (26-34) PG MCHC 32.2 (30-36) % RDW 15.0 H (11.6-14.8) % Plt Count 397 (150-400) X10^3/uL Neut % (Auto) 63.1 (50-75) % Lymph % (Auto) 28.4 (25-40) % [place] % (Auto) 7.4 (3-14) % Eos % (Auto) 0.7 L (2-4) % Baso % (Auto) 0.4 (0-2) % Neut # (Auto) 6900 (6807-5753) /uL Lymph # (Auto) 3100 (9882-6934) /uL [place] # (Auto) 800 (0-900) /uL Eos # (Auto) 100 (0-450) /uL Baso # (Auto) 0 (0-100) /uL Sodium (137-145) mmol/L Potassium (3.4-5.1) mmol/L Chloride (98-107) mmol/L Carbon Dioxide (22-32) mmol/L BUN (7-17) mg/dL Creatinine (0.52-1.04) mg/dL Estimated GFR (>60) mL/min BUN/Creatinine Ratio (6-22) Glucose (70-100) mg/dL Calcium (8.4-10.2) mg/dL Total Bilirubin (0.2-1.3) mg/dL AST (14-36) IU/L ALT (<35) IU/L Alkaline Phosphatase (38-126) U/L Lactate Dehydrogenase 404 (313-618) U/L Total Protein (6.3-8.2) g/dL Albumin (3.5-5.0) g/dL Globulin (1.7-4.1) g/dL Albumin/Globulin Ratio (1.0-2.8) Urine Color Yellow Urine Appearance Clear Urine pH 6.0 (4.5-8.0) Ur Specific [place] 1.010 (1.000-1.035) Urine Protein Negative (Negative) Urine Glucose (UA) Negative (Negative) g/dL Urine Ketones 2+ H (NEGATIVE) Urine Occult Blood 1+ H (Negative) Urine Nitrate Negative (Negative) Urine Bilirubin Negative (NEGATIVE) Urine Urobilinogen 0.2 (0.2) E.U./dL Ur Leukocyte Esterase Negative (NEGATIVE) Urine RBC 0-1/hpf (0-5/HPF) Urine WBC 0-1/hpf (0-5/HPF) Ur Squamous Epith Cells 0-1 /hpf (0-5/HPF) Urine Bacteria Few (2-10) H (None) Ur Culture Indicated? Cult not indicated 07/12/20 Range/Units 04:00 WBC (4.5-11.0) X10^3/uL RBC (4.0-5.2) X10^6/uL Hgb (12.0-16.0) g/dL Hct (36-46) % MCV (80-100) fL MCH (26-34) PG MCHC (30-36) % RDW (11.6-14.8) % Plt Count (150-400) X10^3/uL Neut % (Auto) (50-75) % Lymph % (Auto) (25-40) % [place] % (Auto) (3-14) % Eos % (Auto) (2-4) % Baso % (Auto) (0-2) % Neut # (Auto) (0679-3771) /uL Lymph # (Auto) (3263-6321) /uL [place] # (Auto) (0-900) /uL Eos # (Auto) (0-450) /uL Baso # (Auto) (0-100) /uL Sodium 135 L (137-145) mmol/L Potassium 3.4 (3.4-5.1) mmol/L Chloride 108 H (98-107) mmol/L Carbon Dioxide 22 (22-32) mmol/L BUN 4 L (7-17) mg/dL Creatinine 0.40 L (0.52-1.04) mg/dL Estimated GFR > 60.0 (>60) mL/min BUN/Creatinine Ratio 10.0 (6-22) Glucose 100 (70-100) mg/dL Calcium 8.7 (8.4-10.2) mg/dL Total Bilirubin 0.5 (0.2-1.3) mg/dL AST 17 (14-36) IU/L ALT 8 (<35) IU/L Alkaline Phosphatase 219 H (38-126) U/L Lactate Dehydrogenase (313-618) U/L Total Protein 6.8 (6.3-8.2) g/dL Albumin 3.4 L (3.5-5.0) g/dL Globulin 3.4 (1.7-4.1) g/dL Albumin/Globulin Ratio 1.0 (1.0-2.8) Urine Color Urine Appearance Urine pH (4.5-8.0) Ur Specific [place] (1.000-1.035) Urine Protein (Negative) Urine Glucose (UA) (Negative) g/dL Urine Ketones (NEGATIVE) Urine Occult Blood (Negative) Urine Nitrate (Negative) Urine Bilirubin (NEGATIVE) Urine Urobilinogen (0.2) E.U./dL Ur Leukocyte Esterase (NEGATIVE) Urine RBC (0-5/HPF) Urine WBC (0-5/HPF) Ur Squamous Epith Cells (0-5/HPF) Urine Bacteria (None) Ur Culture Indicated? Discharge Plan Departure Patient Disposition: Home Clinical Impression: Right upper quadrant abdominal pain Instructions: DI for Abdominal Pain-Adult Activity Restrictions/Additional Instructions: *You have been diagnosed with [right upper quadrant pain, likely musculoskeletal. Your labs and images are very reassuring and there is no suggestion of gallbladder disease] *What to do: *Take medications as directed *Follow up with Dr. Ayoub later today as planned *Return to ER if you should have any new, worsening or concerning symptoms Prescriptions: No Action prenat.vits,nisha,[id number] Tablet 1 tab PO DAILY RF: 0 promethazine 12.5 mg suppository 12.5 mg GA Q6H PRN (Reason: nausea and vomiting) Qty: 12 RF: 0 acetaminophen 325 mg Tablet 650 mg PO Q6HR PRN (Reason: Pain, Moderate) Qty: 0 RF: 0 Referrals: Zoila Ayoub MD [Primary Care Provider] -
--- NOTE | 2020-07-12 04:07 | DI.US.S_ITS ---
PROCEDURE: US ABDOMEN LIMITED INDICATIONS: RIGHT UPPER QUADRANT PAIN RADIATING TO BACK TECHNIQUE: Real-time focused scanning was performed of the abdomen, with image documentation. COMPARISON: [facility], US, US OB >= 14 WEEKS FETUS, 03/21/2020, 13:34. [facility], US, US OB >= 14 WEEKS FETUS, 06/21/2020, 11:46. [facility], US, US ABDOMEN LIMITED, 02/16/2020, 20:10. FINDINGS: Visualized liver is normal in size and echotexture. Normal appearance of gallbladder. No gallstones. No gallbladder wall thickening, pericholecystic fluid or sonographic Unger's sign. Common bile duct is normal in caliber measuring 2.4 mm. Visualized pancreas is normal. Note is made of a single living IUP with heart rate 149 BPM. IMPRESSION: 1. Normal abdominal ultrasound exam. 2. A single living IUP is present with heart rate 149 BPM. No significant discrepancy with the shift foreman radiology preliminary report. Dictated by: Margarito Cid M.D. on 07/12/2020 at 8:26 Approved by: Margarito Cid M.D. on 07/12/2020 at 8:28
[2020-07-12 04:21] LABS: Add Manual Diff / Slide Review NO; Basophils Absolute Auto 0 /uL (0-100); Basophils Percent Auto 0.4 % (0-2); Eosinophils Absolute Auto 100 /uL (0-450); Eosinophils Percent Auto 0.7 % (2-4); Hematocrit 31.1 % (36-46); Lymphocytes Absolute Auto 3100 /uL (1100-4500); Lymphocytes Percent Auto 28.4 % (25-40); Mean Corpuscular HGB Conc 32.2 % (30-36); Mean Corpuscular Hemoglobin 26.1 PG (26-34); Mean Corpuscular Volume 81.2 fL (80-100); Monocytes Absolute Auto 800 /uL (0-900); Monocytes Percent Auto 7.4 % (3-14); Neutrophils Absolute Auto 6900 /uL (1500-7000); Neutrophils Percent Auto 63.1 % (50-75); Platelet Count 397 X10^3/uL (150-400); Red Blood Cell Count 3.83 X10^6/uL (4.0-5.2)
[2020-07-12] MEDS: SODIUM CHLORIDE 0.9% 1,000 ML 125 ML IV (04:21)
[2020-07-12 04:22] LABS: Lactate Dehydrogenase 404 U/L (313-618)
[2020-07-12 04:24] LABS: Alanine Aminotransferase 8 IU/L (<35); Albumin 3.4 g/dL (3.5-5.0); Alkaline Phosphatase 219 U/L (38-126); Aspartate Aminotransferase 17 IU/L (14-36); Bilirubin Total 0.5 mg/dL (0.2-1.3); Blood Urea Nitrogen 4 mg/dL (7-17); Calcium 8.7 mg/dL (8.4-10.2); Carbon Dioxide 22 mmol/L (22-32); Chloride 108 mmol/L (98-107); Estimated Glomerular Filt Rate > 60.0 mL/min (>60); Globulin 3.4 g/dL (1.7-4.1); Glucose 100 mg/dL (70-100); HEMOLYSIS < 15 (0-50); Potassium 3.4 mmol/L (3.4-5.1); Sodium 135 mmol/L (137-145); Total Protein 6.8 g/dL (6.3-8.2)
[2020-07-12 04:29] LABS: Appearance Urine UA CLEAR; Bilirubin Urine UA NEGATIVE (NEGATIVE); Color Urine UA YELLOW; Glucose Urine UA NEGATIVE (Negative); Ketones Urine UA 2+ (NEGATIVE); Leukocyte Esterase Urine UA NEGATIVE (NEGATIVE); Nitrite Urine UA NEGATIVE (Negative); Occult Blood Urine UA 1+ (Negative); Protein Urine UA NEGATIVE (Negative); Urobilinogen Urine UA 0.2 E.U./dL (0.2)
[2020-07-12 04:36] LABS: RBC Urine 0-1/HPF (0-5/HPF); WBC Urine 0-1/HPF (0-5/HPF)
[2020-07-12 04:37] LABS: Bacteria Urine Few (2-10); Culture Indicated Urine Cult Not Indicated; Squamous Epithelial Cell Urine 0-1 /HPF (0-5/HPF)
== END 2020-07-12 05:54 | disposition home or self-care (01) ==
PROVIDERS: Emergency Provider Emergency Medicine; PCP Obstetrics & Gynecology
DX: R10.11 Right upper quadrant pain (principal); R11.2 Nausea with vomiting, unspecified; M25.511 Pain in right shoulder; Z3A.36 36 weeks gestation of pregnancy
CPT/HCPCS: 36415; 59025; 59050; 76705; 80053; 81001; 83615; 85025; 96360; 96361; 99283; 99284; G0378; G0379

== ENCOUNTER 2020-07-12 15:33 | Observation (INO) | payer OTHER, SELFPAY | END 2020-07-12 18:10 | disposition home or self-care (01) | PROVIDERS: Admitting Provider Obstetrics & Gynecology; PCP Obstetrics & Gynecology; Referring Provider Obstetrics & Gynecology; Visit Provider Obstetrics & Gynecology | DX: R10.11 Right upper quadrant pain (principal); M25.511 Pain in right shoulder; Z3A.36 36 weeks gestation of pregnancy | CPT/HCPCS: 59025; 59050; G0378; G0379 ==

== ENCOUNTER → 2020-07-20 15:44 | Outpatient (CLI) | payer OTHER, SELFPAY ==
[2020-07-21 13:11] LABS: Strep Grp B PCR NEG for Grp B Strep
== END ==
PROVIDERS: Visit Provider Obstetrics & Gynecology
DX: Z34.83 Encounter for supervision of other normal pregnancy, third trimester (principal); Z3A.37 37 weeks gestation of pregnancy
CPT/HCPCS: 87653

== ENCOUNTER 2020-07-25 14:03 | Observation (INO) | payer OTHER, SELFPAY ==
[2020-07-25] MEDS: LACTATED RINGERS 1,000 ML 1000 ML IV (14:50)
[2020-07-25] MEDS: ONDANSETRON 4 MG/2 ML INJ (15:47)
== END 2020-07-25 16:18 | disposition home or self-care (01) ==
PROVIDERS: Admitting Provider Obstetrics & Gynecology; PCP Obstetrics & Gynecology; Referring Provider Obstetrics & Gynecology; Visit Provider Obstetrics & Gynecology
DX: O21.9 Vomiting of pregnancy, unspecified (principal); O26.813 Pregnancy related exhaustion and fatigue, third trimester; N89.8 Other specified noninflammatory disorders of vagina; Z3A.38 38 weeks gestation of pregnancy
CPT/HCPCS: 59025; 59050; 84112; 96360; G0378; G0379; J2405

== ENCOUNTER → 2020-07-27 10:08 | Outpatient (CLI) | payer OTHER, MEDICAID, SELFPAY ==
[2020-07-27 10:43] LABS: COVID19 -Nasal RAPID Negative (Negative)
== END ==
PROVIDERS: Visit Provider Obstetrics & Gynecology
DX: Z01.812 Encounter for preprocedural laboratory examination (principal); Z20.828 Contact with and (suspected) exposure to other viral communicable diseases
CPT/HCPCS: 87635

== ENCOUNTER 2020-07-28 07:26 | Inpatient (IN) | payer OTHER, MEDICAID, SELFPAY ==
[2020-07-28 08:45] VITALS: BP 120/71
[2020-07-28] MEDS: LACTATED RINGERS 1,000 ML 100 ML IV ×3 (09:02→18:35)
[2020-07-28] MEDS: OXYTOCIN PREMIX 30 UNIT/500 ML PLAST..BAG IV (09:13)
[2020-07-28 09:28] LABS: Add Manual Diff / Slide Review NO; Basophils Absolute Auto 100 /uL (0-100); Basophils Percent Auto 0.5 % (0-2); Eosinophils Absolute Auto 100 /uL (0-450); Eosinophils Percent Auto 0.5 % (2-4); Hematocrit 28.9 % (36-46); Hemoglobin 9.3 g/dL (12.0-16.0); Lymphocytes Absolute Auto 2700 /uL (1100-4500); Lymphocytes Percent Auto 25.5 % (25-40); Mean Corpuscular HGB Conc 32.3 % (30-36); Mean Corpuscular Hemoglobin 25.3 PG (26-34); Mean Corpuscular Volume 78.6 fL (80-100); Monocytes Absolute Auto 800 /uL (0-900); Monocytes Percent Auto 7.9 % (3-14); Neutrophils Absolute Auto 6900 /uL (1500-7000); Neutrophils Percent Auto 65.6 % (50-75); Platelet Count 391 X10^3/uL (150-400); Red Blood Cell Count 3.67 X10^6/uL (4.0-5.2); Red Cell Distribution Width 15.7 % (11.6-14.8); White Blood Cell Count 10.6 X10^3/uL (4.5-11.0)
--- NOTE | 2020-07-28 18:46 | PM.OBHP.1 ---
OB HPI Date/Time Date of admission: 07/28/20 Date Patient Seen: 07/28/20 Time Patient Seen: 08:30 History of Present Condition Chief complaint: observation : 4 Para: 2 Estimated Date of Delivery: 08/06/20 Estimated Gestational Age (weeks): Thirty Narrative: Damaris Fleming is a 30 year old female 4 para 2 at an estimated gestational age of 39 weeks who presents for induction of labor secondary to severe maternal discomfort Indications Indication for induction OB: maternal discomfort History of Present care: good care Dating criteria: LMP confirmed by 1st trimester US Ultrasounds: normal 1st trimester US and normal mid trimester US Obstetrical complications: none Medical complications: none Preadmission Labs Blood type: O (+) positive -: Antibody screen: negative, GBS status: negative, HBsAG: negative, HIV: negative and RPR/VDLR: negative -: Chlamydia screen: not detected and Gonorrhea screen: not detected -: Rubella: not immune and Varicella: immune HCT: 28.9 HCAB: negative PAP: Normal Quad screen: Normal Urine: Negative Prior (ies) History: Two spontaneous vaginal deliveries Evaluation Evaluation Baseline heart rate: 135 Variability: Moderate (11-25) monitor accelerations: Present monitor decelerations: Absent Cervical dilation (cm): 3 Cervical effacement (%): 85 station: -1 Laboratory results: Laboratory Tests 07/28/20 07/28/20 08:45 08:45 WBC 10.6 RBC 3.67 L Hgb 9.3 L Hct 28.9 L MCV 78.6 L MCH 25.3 L MCHC 32.3 RDW 15.7 H Plt Count 391 Neut % (Auto) 65.6 Lymph % (Auto) 25.5 [place] % (Auto) 7.9 Eos % (Auto) 0.5 L Baso % (Auto) 0.5 Neut # (Auto) 6900 Lymph # (Auto) 2700 [place] # (Auto) 800 Eos # (Auto) 100 Baso # (Auto) 100 Blood Type O Positive Antibody Screen Negative [facility] Medical History (Updated 07/27/20 @ 00:01 by ) Anemia (~2008) Bronchitis Chicken pox Dehydration (~02/04/20) Episode of syncope Irregular menstrual cycle (~2008) Migraine Multiparity Stress (spontaneous vaginal delivery) Surgical History Anesthesia History of appendectomy (~10/2015) Family History Mother Heart palpitations Father Family estrangement Heroin addiction HIV (human immunodeficiency virus infection) Adopted Son Cardiac arrhythmia Cardiac related syncope Grandfather Diabetes mellitus Grandmother Myocardial infarction Hypertension Cardiomyopathy Grandfather Family estrangement Grandmother Family estrangement Family/Other Cervical cancer Social History marital status: unmarried,living together number of children: 2 household members: significant other and children pets and animals: Yes (X 1 Dog and X 1 Cat ) education level: college occupational status: unemployed current occupational exposures/hazards: No clay/episcopalian: Buddhism special clay needs: No Smoking Status: Never smoker second hand exposure: No alcohol intake: former substance use type: does not use Meds Home Medications and Allergies Home Medications Medication Instructions Recorded Confirmed Type prenat.vits,nisha,ywo-wrgd-ppdub 1 tab PO DAILY 02/10/20 07/27/20 History acetaminophen 650 mg PO Q6HR PRN #0 tab 02/17/20 07/27/20 Rx promethazine 12.5 mg rectal 12.5 mg [place] Q6H PRN #12 each 02/24/20 07/27/20 Rx suppository cyclobenzaprine 10 mg tablet 10 mg PO TID PRN #20 tab 07/12/20 07/27/20 Rx oxycodone-acetaminophen 5 mg-325 1 tab PO Q4-6H PRN #14 tab 07/12/20 07/27/20 Rx mg tablet Allergies Allergy/AdvReac Type Severity Reaction Status Date / Time No Known Drug Allergies Allergy Verified 07/27/20 09:12 Exam Vital Signs (past 8 hours): Generally: A well-developed, well-nourished female, no acute distress Lungs: Clear to auscultation bilaterally Cardiovascular: Regular rate and rhythm Fundal height: 39 cm Estimated weight: 7-1/2 lb Extremities: Trace edema Objective Labs Result Diagrams: 07/28/20 08:45 Labs: Laboratory Results - last 24 hr 07/28/20 07/28/20 08:45 08:45 WBC 10.6 RBC 3.67 L Hgb 9.3 L Hct 28.9 L MCV 78.6 L MCH 25.3 L MCHC 32.3 RDW 15.7 H Plt Count 391 Neut % (Auto) 65.6 Lymph % (Auto) 25.5 [place] % (Auto) 7.9 Eos % (Auto) 0.5 L Baso % (Auto) 0.5 Neut # (Auto) 6900 Lymph # (Auto) 2700 [place] # (Auto) 800 Eos # (Auto) 100 Baso # (Auto) 100 Blood Type O Positive Antibody Screen Negative Assessment and Plan Assessment and Plan Assessment and Plan narrative: Assessment: 30-year-old 4 para 2 at estimated gestational age of 39 weeks for induction of labor due to maternal discomfort GBS negative Plan: Pitocin per protocol 2 Artificial rupture membranes when able Epidural as necessary Expected management to spontaneous vaginal delivery Time Spent with Patient Total time spent with greater than 50% in coordination of care (as documented) at patient's floor/unit and/or counseling patient:: 15-24 minutes
--- NOTE | 2020-07-28 19:26 | P.PCNOB_ITS ---
Events: Labor Induction Labor & Delivery Delivery date: 07/28/20 Cervical ripening method: none Induction method: per pitocin protocol Delivery augmentation: rupture of membranes Delivery monitor: external FHT and external uterine Route of delivery: Episiotomy description: None L&D Laceration Description: None Estimated blood loss (mL): 100 Anesthesia type: Epidural Complications: None [place] Baby 1: gender: Female Presentation: vertex Placenta delivery description: Spontaneous cord vessel description: 3 Vessels score (1 min): 9 score (5 min): 9 Narrative: Patient complete and pushed for 53 minutes. At 1907, a live female delivered in the left occiput anterior presentation. With the last push the baby went from direct occiput posterior to left occiput anterior. No nuchal cord. The remainder of the body delivered without difficulty and was placed on mom's abdomen. The cord was double clamped and cut after it stopped pulsing. Cord bloods were obtained. Placenta delivered intact with a three- vessel cord at 191. Fundus massaged to firm. Pitocin was given in the IV fluids. No lacerations. Epidural analgesia. Apgars 9 at 1 minute and 9 at 5 minutes. . Sponge and lap count correct. Mom and baby stable to recovery. Plan for aftercare: To routine care
[2020-07-28] MEDS: IBUPROFEN 600 MG TABLET PO (22:30)
[2020-07-29] MEDS: IBUPROFEN 600 MG TABLET PO (09:01)
[2020-07-29] MEDS: PRENATAL VIT,CALC/IRON/FOLIC 1 TABLET 1 TAB PO (09:01)
[2020-07-29] MEDS: DOCUSATE 100 MG CAPSULE PO (09:01)
--- NOTE | 2020-07-29 14:54 | P.DS_ITS ---
Discharge Providers Provider Date of admission: 07/28/20 07:26 Discharge Date: 07/29/20 Consults: 07/29/20 19:30 Consult to Sales Team Recruiter Routine Comment: Discharge provider: Zoila Ayoub MD Summary Hospital Course Date Patient Seen: 07/29/20 Time Patient Seen: 12:30 Procedures: Induction of labor with Pitocin Artificial rupture membranes Epidural analgesia Spontaneous vaginal delivery Hospital Course: Patient is a 30-year-old 4 para 3 who presented at estimated gestational age of 39 weeks for Pitocin induction of labor. She was started on Pitocin. Artificial rupture membranes was performed. An epidural was placed for pain management. She had a spontaneous vaginal delivery without complication. She is discharged home on day # 1. Peripartum Data Delivery Method: Natural Vaginal Laceration Description: None Episiotomy description: None Procedures: Pitocin induction of labor Artificial rupture of membranes Spontaneous vaginal delivery Epidural analgesia complications: none 1: Gender: Female Disposition of : home Status at Discharge Cognitive/behavioral status at discharge: oriented Functional status at discharge: independent ambulation Overall status at discharge: patient is progressing back to baseline Time Spent with Patient Time attestation: Total time spent providing and/or coordinating discharge services: Time spent: Less than 30 minutes Objective Labs Result Diagrams: 07/29/20 05:50 Labs: Laboratory Results - last 24 hr 07/29/20 05:50 Hgb 8.0 L Hct 25.0 L Exam Vital Signs (past 8 hours): Generally: Patient lying in bed, no acute distress Lungs: Clear to auscultation bilaterally Cardiovascular: Regular rate and rhythm Fundus: Firm at U -2 Extremities: Negative Homans, no edema Discharge Plan Discharge Plan Patient Disposition: Home Provider Discharge Comment: Call with fever, chills, or bleeding vaginally more than a pad in an hour Ibuprofen 600 mg every 6 hours as needed for cramping Push fluids Stay away from cauliflower, broccoli, brussell sprouts, and cabbage as these can make the baby gassy Discharge orders & Medications Prescriptions: Continued oxycodone-acetaminophen [Percocet] 5-325 mg tablet 1 tab PO Q4-6H PRN (Reason: pain) Qty: 14 RF: 0 prenat.vits,nisha,[id number] Tablet 1 tab PO DAILY RF: 0 acetaminophen 325 mg Tablet 650 mg PO Q6HR PRN (Reason: Pain, Moderate) Qty: 0 RF: 0 Discontinued cyclobenzaprine 10 mg tablet 10 mg PO TID PRN (Reason: muscle spasm) Qty: 20 RF: 0 promethazine 12.5 mg suppository 12.5 mg [place] Q6H PRN (Reason: nausea and vomiting) Qty: 12 RF: 0 Follow up/Referrals: Zoila Ayoub MD [Physician] - 6 Weeks (Follow up with DR. Ayoub on 09/08/2020 at 2:00pm) Diet/Activity/Treatments Diet: Regular Activity: No intercourse for 6 weeks Skin/Wound/Dressing Care Report to your healthcare provider any signs of infection, such as:: chills, fever, increased pain and unusual drainage Visit Report/Discharge Packet Instructions: DI for Labor and Delivery, Vaginal Stand Alone Forms: Discharge: Care
--- NOTE | 2020-07-29 17:33 | DI.US.S_ITS ---
PROCEDURE: US PERIPH VENOUS LOW EXTREM RT INDICATIONS: R/o DVT TECHNIQUE: Real-time imaging, as well as color and pulse Doppler interrogation, were performed of the lower extremity deep veins from the inguinal ligament to the popliteal fossa. COMPARISON: None. FINDINGS: The common femoral, femoral and popliteal veins are normally compressible, and free of intraluminal thrombus. Color and pulse Doppler demonstrate normal phasic intraluminal flow. There is normal augmentation response to distal compression maneuver. IMPRESSION: 1. No evidence of deep venous thrombosis in the right lower extremity. Dictated by: Sunil Mehta M.D. on 07/29/2020 at 19:21 Approved by: Sunil Mehta M.D. on 07/29/2020 at 19:23
[2020-07-29 19:39] VITALS: BP 119/75; PULSE 95; RESP 16; TEMP 36.7
== END 2020-07-29 18:50 | disposition home or self-care (01) | DRG 560 ==
PROVIDERS: Admitting Provider Obstetrics & Gynecology; Referring Provider Obstetrics & Gynecology; Visit Provider Obstetrics & Gynecology
DX: O75.81 Maternal exhaustion complicating labor and delivery (principal); Z3A.39 39 weeks gestation of pregnancy; Z37.0 Single live birth; Z01.812 Encounter for preprocedural laboratory examination; Z20.828 Contact with and (suspected) exposure to other viral communicable diseases
CPT/HCPCS: 01967; 36415; 59050; 59409; 85014; 85018; 85025; 86850; 86900; 86901; 87635; 93971; G0379; J2590

== ENCOUNTER 2020-08-01 00:39 | Emergency (ER) | payer OTHER, MEDICAID, SELFPAY ==
[2020-08-01 00:45] VITALS: BP 137/74; PULSE 84; RESP 22; TEMP 36.4; O2SAT 100
--- NOTE | 2020-08-01 01:23 | ED_ITS ---
HPI - Female Genitourinary General Chief complaint: Urogenital-Female Stated complaint: gave , prolapsed hemrrhoids,cant urinate Time Seen by Provider: 08/01/20 00:58 Source: patient Mode of arrival: Ambulatory Limitations: no limitations History of Present Illness HPI Narrative: Patient is a 30-year-old female presenting after vaginal with induction on 07/28/2020. Today she states that she has painful hemorrhoids despite Percocet an [id number] hemorrhoid medication. She has not had any fever or chills. She also has had decreased urination, she does not remember the last time she urinated but he has no abdominal pain because the rectal pain is so bad. With her previous she has not had hemorrhoids. She has been using a Sitz baths assess well. Unfortunately she continues to have severe pain. She denies any urinary frequency or urgency. Related Data Home Medications Medication Instructions Recorded Confirmed prenat.vits,nisha,[id number] 1 tab PO DAILY 02/10/20 07/27/20 Previous Rx's Medication Instructions Recorded acetaminophen 650 mg PO Q6HR PRN #0 tab 02/17/20 oxycodone-acetaminophen 5 mg-325 1 tab PO Q4-6H PRN #14 tab 07/12/20 mg tablet hydrocortisone 1 applic ME QD-BID PRN #30 g 08/01/20 hydrocortisone acetate [Anusol-HC] 25 mg ME BEDTIME #12 ea 08/01/20 Allergies Allergy/AdvReac Type Severity Reaction Status Date / Time No Known Drug Allergies Allergy Verified 07/27/20 09:12 Review of Systems Review of Systems Narrative: GENERAL: Denies chills, fatigue, malaise, fever, sweats, travel HEENT: Denies sinus pain, ear pain, sore throat, difficulty swallowing, neck pain RESPIRATORY: Denies dyspnea, cough, wheezing, hemoptysis, sputum. CARDIOVASCULAR: Denies chest pain, palpitations, orthopnea, edema GASTROINTESTINAL: + rectal pain, see HPI Denies nausea, vomiting, abdominal pain, diarrhea, constipation, melena. : See HPI Denies dysuria, frequency, incontinence, hematuria, flank pain. MUSCULOSKELETAL: Denies weakness, joint pain, or bony pain SKIN: No rash, no erythema, no pruritus NEUROLOGIC: Denies weakness, dizziness, headache, numbness, change in speech, confusion PSYCHIATRIC: No concerning psychosocial issues. 12 point review of systems is negative except for those stated above and HPI Patient History Medical History Anemia (~2008) Bronchitis Chicken pox Dehydration (~02/04/20) Episode of syncope Irregular menstrual cycle (~2008) Migraine Multiparity Stress (spontaneous vaginal delivery) Surgical History Anesthesia History of appendectomy (~10/2015) Family History Mother Heart palpitations Father Family estrangement Heroin addiction HIV (human immunodeficiency virus infection) Adopted Son Cardiac arrhythmia Cardiac related syncope Grandfather Diabetes mellitus Grandmother Myocardial infarction Hypertension Cardiomyopathy Grandfather Family estrangement Grandmother Family estrangement Family/Other Cervical cancer alcohol intake frequency: holidays/special occasions only Substance Use Type: does not use Exam Initial Vital Signs Initial Vital Signs: Vital Signs Temperature 97.6 F 08/01/20 00:45 Pulse Rate 84 08/01/20 00:45 Respiratory Rate 22 08/01/20 00:45 Blood Pressure 137/74 08/01/20 00:45 Pulse Oximetry 100 08/01/20 00:45 GENERAL: Young 30-year-old female appears uncomfortable and in no acute distress. HEENT: Head atraumatic,EOMI, pupils reactive, face symmetric, moist mucous membranes CARDIOVASCULAR: Regular rate and rhythm without murmurs, rubs or gallops. RESPIRATORY: Breath sounds equal bilaterally, no wheezes rales or rhonchi. ABDOMEN: Soft, nontender. Normoactive bowel sounds all 4 quadrants. No guarding or rebound. RECTAL: Large external hemorrhoids not thrombosed : No CVA tenderness EXTREMITIES: Normal range of motion, no clubbing or edema. Neurovascularly intact NEUROLOGICAL: Alert and oriented x4.Normal gait and speech. Cranial nerves II through XII grossly intact. SKIN: Warm, dry, no laceration, no petechiae, no rashes or lesions. Course Orders Ordered: ED Orders 08/01/20 02:20 Urinalysis and Microscopic Stat Urine Culture Stat Discontinued Medications Hydrocortisone (Hydrocortisone 2.5% Cream 30 Gm) 1 applic TOP NOW ONE Stop: 08/01/20 01:24 Ketorolac Tromethamine (Ketorolac 60 Mg/2 Ml Vial) 30 mg IM NOW ONE Stop: 08/01/20 02:53 Last Admin: 08/01/20 02:59 Dose: 30 mg Documented by: JASS Vital Signs Vital signs: Vital Signs - 8 hr 08/01/20 00:45 08/01/20 03:05 Temperature 97.6 F Pulse Rate 84 78 Respiratory Rate 22 16 Blood Pressure 137/74 117/62 Pulse Oximetry 100 97 MDM - Female Genitourinary Lab Data Labs: Lab Results 08/01/20 Range/Units 02:20 Urine Color Yellow Urine Appearance Cloudy Urine pH 6.0 (4.5-8.0) Ur Specific [place] 1.020 (1.000-1.035) Urine Protein 1+ H (Negative) Urine Glucose (UA) Trace H (Negative) g/dL Urine Ketones Negative (NEGATIVE) Urine Occult Blood 3+ H (Negative) Urine Nitrate Negative (Negative) Urine Bilirubin Negative (NEGATIVE) Urine Urobilinogen 2.0 H (0.2) E.U./dL Ur Leukocyte Esterase Trace H (NEGATIVE) Urine RBC 30-100/hpf H (0-5/HPF) Urine WBC 5-10/hpf H (0-5/HPF) Urine Bacteria None seen (None) Ur Culture Indicated? Specimen cultured MDM Narrative Medical decision making narrative: The patient was able to urinate if she pushed on her abdomen she urinated about 200 cc. A bladder scan was unsuccessful it was not able to find her bladder. She does not have any significant or severe abdominal pain. No signs or symptoms of UTI At this time hemorrhoids appear not thrombosed recommend hydrocortisone treatment and conservative management at this time. Discussed with patient not to get constipated in to get on a bowel regimen especially if she is taking opiate medications. She understands agrees. She is given 1 dose of Toradol in the ED to help with some pain she took pain medication just prior to arrival Discharge Plan Departure Patient Disposition: Home Clinical Impression: Hemorrhoids Qualifiers: Hemorrhoid type: unspecified Qualified Code(s): K64.9 - Unspecified hemorrhoids Instructions: DI for Hemorrhoids Activity Restrictions/Additional Instructions: *You have been diagnosed with hemorrhoid and urinary retention *What to do: At this time recommend continuing conservative treatment with Sitz baths and steroid cream and suppositories *Continue to take medications as directed--> sent to [facility] in a car for Hydrocortisone cream 2.5% 4 times a day for no more than 1 week Or Anusol suppository 1-2 times daily *Follow up with your primary care provider in 2-3 days *Return to ER if you should have increasing pain, bleeding that is not controlled or any new, worsening or concerning symptoms Prescriptions: New hydrocortisone 2.5 % cream with perineal applicator 1 applic ME QD-BID PRN (Reason: hemorrhoids) Qty: 30 RF: 0 hydrocortisone acetate [Anusol-HC] 25 mg suppository 25 mg ME BEDTIME Qty: 12 RF: 0 No Action oxycodone-acetaminophen [Percocet] 5-325 mg tablet 1 tab PO Q4-6H PRN (Reason: pain) Qty: 14 RF: 0 prenat.vits,nisha,[id number] Tablet 1 tab PO DAILY RF: 0 acetaminophen 325 mg Tablet 650 mg PO Q6HR PRN (Reason: Pain, Moderate) Qty: 0 RF: 0
--- NOTE | 2020-08-01 01:23 | PC.NURSE ---
Pt reports 3 days , large anal hemmorhoids causing severe pain. Pt reports no BM since delivery and has been unable to urinate since this afternoon.
--- NOTE | 2020-08-01 02:28 | PC.NURSE ---
Pt assisted to bathroom via WC and was able to void ~200mls dark urine.
[2020-08-01 02:29] LABS: Bacteria Urine None Seen
[2020-08-01 02:31] LABS: Bilirubin Urine UA NEGATIVE (NEGATIVE); Color Urine UA YELLOW; Glucose Urine UA TRACE g/dL (Negative); Ketones Urine UA NEGATIVE (NEGATIVE); Leukocyte Esterase Urine UA TRACE (NEGATIVE); Nitrite Urine UA NEGATIVE (Negative); Occult Blood Urine UA 3+ (Negative); Protein Urine UA 1+ (Negative)
[2020-08-01 02:41] LABS: Appearance Urine UA Cloudy
[2020-08-01 02:42] LABS: Culture Indicated Urine Specimen Cultured; RBC Urine 30-100/HPF (0-5/HPF); WBC Urine 5-10/HPF (0-5/HPF)
[2020-08-01] MEDS: KETOROLAC 60 MG/2 ML VIAL 30 MG IM (02:59)
[2020-08-01 03:05] VITALS: BP 117/62; PULSE 78; RESP 16; O2SAT 97
== END 2020-08-01 03:05 | disposition home or self-care (01) ==
PROVIDERS: Emergency Provider Emergency Medicine
DX: K64.9 Unspecified hemorrhoids (principal)
CPT/HCPCS: 81001; 87086; 96372; 99281; 99283; J1885

== ENCOUNTER 2021-07-19 21:00 | Emergency (ER) | payer OTHER, MEDICAID, SELFPAY ==
[2021-07-19 21:28] VITALS: BP 143/81; PULSE 80; RESP 17; TEMP 36.9; O2SAT 96
--- NOTE | 2021-07-19 22:57 | ED_ITS ---
HPI - Anxiety General Chief Complaint: Anxiety Stated Complaint: mental health eval Time Seen by Provider: 07/19/21 22:33 Source: patient Mode of arrival: Ambulatory Limitations: no limitations History of Present Illness HPI narrative: Patient is a 31 year old female who is here for evaluation of anxiety and depression and feeling overwhelmed. She is here with her daughter who is being seen for anxiety and depression and suicidal ideation. Mother states that her is active duty in his deployed. She is having problems at home with regard to her eldest daughter who is also here in the emergency department. There issues with her daughter being bullied at school and then issues today with suicidal ideation. Patient and daughter are scheduled to see mental health providers and they do have resources available. Mother stated that she is not suicidal but very often has anxiety at home and has concerns about her ability to take care of her children. She contacted the counselors at the [facility] and was instructed to come to the emergency department. Related Data Home Medications Medication Instructions Recorded Confirmed prenat.vits,nisha,[id number] 1 tab PO DAILY 02/10/20 07/27/20 Previous Rx's Medication Instructions Recorded acetaminophen 325 mg tablet 650 mg PO Q6HR PRN #0 tab 02/17/20 oxycodone-acetaminophen 5 mg-325 1 tab PO Q4-6H PRN #14 tab 07/12/20 mg tablet (Percocet) hydrocortisone 2.5 % topical cream 1 applic MO QD-BID PRN #30 g 08/01/20 with perineal applicator hydrocortisone acetate 25 mg 25 mg MO BEDTIME #12 ea 08/01/20 rectal suppository (Anusol-HC) Allergies Allergy/AdvReac Type Severity Reaction Status Date / Time No Known Drug Allergies Allergy Verified 07/27/20 09:12 Review of Systems Cardiovascular Cardiovascular: Reports system reviewed and no additional complaints, except as documented Respiratory Respiratory: Reports system reviewed and no additional complaints, except as documented Gastrointestinal Gastrointestinal: Reports system reviewed and no additional complaints, except as documented Psychiatric Psychiatric: Reports system reviewed and no additional complaints, except as documented and Reports as per HPI Hematologic/Lymphatic On Anticoagulants: No Patient History Medical History Anemia (~2008) Bronchitis Chicken pox Dehydration (~02/04/20) Episode of syncope Irregular menstrual cycle (~2008) Migraine Multiparity Stress (spontaneous vaginal delivery) Surgical History Anesthesia History of appendectomy (~10/2015) Family History Mother Heart palpitations Father Family estrangement Heroin addiction HIV (human immunodeficiency virus infection) Adopted Son Cardiac arrhythmia Cardiac related syncope Grandfather Diabetes mellitus Grandmother Myocardial infarction Hypertension Cardiomyopathy Grandfather Family estrangement Grandmother Family estrangement Family/Other Cervical cancer Social History marital status: unmarried,living together number of children: 2 household members: significant other and children pets and animals: Yes (X 1 Dog and X 1 Cat ) education level: college occupational status: unemployed current occupational exposures/hazards: No clay/baptist: Yazdanism special clay needs: No Smoking Status: Never smoker second hand exposure: No alcohol intake: former substance use type: does not use Smoking Status: Never smoker alcohol intake frequency: holidays/special occasions only Substance Use Type: does not use Exam Initial Vital Signs Initial Vital Signs: Vital Signs Temperature 98.5 F 07/19/21 21:28 Pulse Rate 80 07/19/21 21:28 Respiratory Rate 17 07/19/21 21:28 Blood Pressure 143/81 H 07/19/21 21:28 Pulse Oximetry 96 07/19/21 21:28 HENMT Head: normal to inspection Resp Effort & Inspection: normal respiratory effort Cardio Rate: regular rate Skin General: no rashes or lesions noted Neuro General: patient alert, patient awake and moves all extremities Psych Appearance: grossly normal and well kempt Mental Status: mental status grossly normal Speech and Movement: speech and movement normal Mood: congruent mood Affect: normal affect Attitude: cooperative Judgment: judgment good Scores GCS Barbi coma scale eye opening: Spontaneous [place] coma scale verbal response: Orientated Barbi coma scale motor response: Obey commands Barbi coma scale total score: 15 Course Vital Signs Vital signs: Vital Signs - 8 hr 07/20/21 00:01 Pulse Rate 77 Respiratory Rate 17 Blood Pressure 136/79 Pulse Oximetry 99 MDM - Anxiety MDM Narrative Medical decision making narrative: Patient is alert oriented x3. GCS of 15. Not suicidal. Had a long discussion with her regarding her symptoms. We did discuss the limitations at the emergency department has with regard to mental health evaluations. Patient does not desire to be admitted to the hospital nor does she meet criteria for an involuntary admission. She has an appointment scheduled with her primary doctor next week. Will discharge home with strict return precautions. Mother expressed understanding and agreement. Discharge Plan Departure Patient Disposition: Home Clinical Impression: Anxiety Instructions: DI for Anxiety -- Adult Activity Restrictions/Additional Instructions: I recommend that you keep all of your schedule medical appointments. Continues to take any medications. I do recommend you talk with your primary doctor at your appointment next week about your symptoms. Return to the emergency department for any new or worsening symptoms Prescriptions: No Action oxycodone-acetaminophen [Percocet] 5-325 mg tablet 1 tab PO Q4-6H PRN (Reason: pain) Qty: 14 0RF Rx Instructions: Take 1/2 to 1 tab every 4-6 hours as needed for pain prenat.vits,nisha,[id number] Tablet 1 tab PO DAILY 0RF acetaminophen 325 mg Tablet 650 mg PO Q6HR PRN (Reason: Pain, Moderate) Qty: 0 0RF hydrocortisone 2.5 % cream with perineal applicator 1 applic MO QD-BID PRN (Reason: hemorrhoids) Qty: 30 0RF hydrocortisone acetate [Anusol-HC] 25 mg suppository 25 mg MO BEDTIME Qty: 12 0RF
[2021-07-20 00:01] VITALS: BP 136/79; PULSE 77; RESP 17; O2SAT 99
--- NOTE | 2021-07-20 00:28 | PC.NURSE ---
under extreme stress, see triage note
--- NOTE | 2021-07-20 00:29 | PC.NURSE ---
0000 I helped the patient call the [facility] per request from Dr. Cain.
== END 2021-07-20 00:01 | disposition home or self-care (01) ==
PROVIDERS: Emergency Provider Emergency Medicine
DX: F41.9 Anxiety disorder, unspecified (principal)
CPT/HCPCS: 99281

== ENCOUNTER → 2021-10-04 11:41 | Outpatient (CLI) | payer OTHER, MEDICAID, SELFPAY ==
[2021-10-04 15:14] LABS: Appearance Urine UA CLOUDY; Bilirubin Urine UA NEGATIVE (NEGATIVE); Color Urine UA YELLOW; Glucose Urine UA NEGATIVE (Negative); Ketones Urine UA NEGATIVE (NEGATIVE); Leukocyte Esterase Urine UA TRACE (NEGATIVE); Nitrite Urine UA NEGATIVE (Negative); Occult Blood Urine UA 1+ (Negative); Protein Urine UA 1+ (Negative); Urobilinogen Urine UA 0.2 E.U./dL (0.2)
[2021-10-04 15:52] LABS: pH Urine UA 7.5 (4.5-8.0)
[2021-10-04 15:54] LABS: RBC Urine 1-5/HPF (0-5/HPF); Squamous Epithelial Cell Urine 0-1 /HPF (0-5/HPF); WBC Urine 5-10/HPF (0-5/HPF)
[2021-10-04 15:55] LABS: Amorphous Sediment Urine 2+; Bacteria Urine Few (2-10); Mucus Urine 2+ (Negative)
== END ==
PROVIDERS: Visit Provider Obstetrics & Gynecology
DX: R30.0 Dysuria (principal); R31.9 Hematuria, unspecified; R35.89 Other polyuria
CPT/HCPCS: 81001; 87077; 87086; 87186

== ENCOUNTER → 2021-10-16 16:05 | Outpatient (CLI) | payer OTHER, MEDICAID, SELFPAY ==
[2021-10-16 19:46] LABS: Appearance Urine UA CLEAR; Bilirubin Urine UA NEGATIVE (NEGATIVE); Color Urine UA YELLOW; Glucose Urine UA NEGATIVE (Negative); Ketones Urine UA NEGATIVE (NEGATIVE); Leukocyte Esterase Urine UA NEGATIVE (NEGATIVE); Nitrite Urine UA NEGATIVE (Negative); Occult Blood Urine UA TRACE-INTACT (Negative); Protein Urine UA NEGATIVE (Negative); Specific Gravity Urine UA 1.015 (1.000-1.035); Urobilinogen Urine UA 0.2 E.U./dL (0.2)
[2021-10-16 19:50] LABS: pH Urine UA 6.5 (4.5-8.0)
== END ==
PROVIDERS: Visit Provider Obstetrics & Gynecology
DX: Z34.81 Encounter for supervision of other normal pregnancy, first trimester (principal)
CPT/HCPCS: 81003; 87086

== ENCOUNTER → 2021-10-26 13:56 | Outpatient (CLI) | payer OTHER, MEDICAID, SELFPAY ==
[2021-10-26 15:32] LABS: Add Manual Diff / Slide Review NO; Basophils Absolute Auto 0 /uL (0-100); Basophils Percent Auto 0.3 % (0-2); Eosinophils Absolute Auto 100 /uL (0-450); Eosinophils Percent Auto 0.5 % (2-4); Hematocrit 40.8 % (36-46); Hemoglobin 13.2 g/dL (12.0-16.0); Lymphocytes Absolute Auto 2400 /uL (1100-4500); Lymphocytes Percent Auto 21.1 % (25-40); Mean Corpuscular HGB Conc 32.3 % (30-36); Mean Corpuscular Hemoglobin 31.7 PG (26-34); Monocytes Absolute Auto 700 /uL (0-900); Monocytes Percent Auto 6.2 % (3-14); Neutrophils Absolute Auto 8300 /uL (1500-7000); Neutrophils Percent Auto 71.9 % (50-75); Platelet Count 302 X10^3/uL (150-400); Red Blood Cell Count 4.17 X10^6/uL (4.0-5.2); Red Cell Distribution Width 13.2 % (11.6-14.8); White Blood Cell Count 11.6 X10^3/uL (4.5-11.0)
[2021-10-26 17:17] LABS: HIV 1 & 2 Ab/Ag 4th Gen Combo NEGATIVE (NEGATIVE); Hep C Virus Ab w/Reflex Quant NEGATIVE s/c (NEGATIVE); Hepatitis B Surface Antigen NEGATIVE s/c (NEGATIVE); Rubella Antibody IgG 9.9 IU/mL (>15)
[2021-10-27 05:07] LABS: RPR Screen Non Reactive (Non Reactive)
[2021-10-27 08:53] LABS: Varicella IgG Antibody 556 index (Immune >165)
== END ==
PROVIDERS: Referring Provider Obstetrics & Gynecology; Visit Provider Obstetrics & Gynecology
DX: Z34.81 Encounter for supervision of other normal pregnancy, first trimester (principal)
CPT/HCPCS: 36415; 80055; 86787; 86803; 86850; 86900; 86901; 87389

== ENCOUNTER → 2022-01-02 10:47 | Outpatient (CLI) | payer OTHER, MEDICAID, SELFPAY ==
--- NOTE | 2022-01-02 | DI.US.S_ITS ---
PROCEDURE: US OB >= 14 WEEKS FETUS INDICATIONS: 20 WEEK ANATOMY SCAN OUTSIDE/PRIOR DATING DATA: Last menstrual period (LMP): 07/12/2021. LMP-based estimated date of delivery (WILMER): 04/18/2022. The calculations are made using the ultrasound WILMER of 04/24/2022. TECHNIQUE: Real-time scanning was performed of the fetus, with image documentation and biometric measurements. COMPARISON: [facility], US, US OB >= 14 WEEKS FETUS, 11/13/2021, 9:03. FINDINGS: General: A single living intrauterine gestation is present. Presentation: Breech. Placenta: Placental position is anterior , without previa. Amniotic fluid index: 16.9 cm, normal range is 5-24 cm. heart rate: 145 beats per minute. Maternal cervical canal: 4.8 cm long. Normal lower limit is 2.5 cm. biometrics: Biparietal diameter: 5.6 cm. 23 weeks 2 days Head circumference: 21.5 cm. 23 weeks 5 days Abdominal circumference: 19.1 cm. 23 weeks 6 days Femur length: 4.3 cm. 24 weeks 1 day Summated gestational age from initial ultrasound: 24 weeks 0 days Composite gestational age from present scan: 23 weeks 5 days Estimated weight and percentile: 638 g. 35th percentile. Anatomic survey: Neuro: Ventricles are non-dilated at less than 10 mm. Cisterna magna is normal at 3-11 mm. Cerebellum is normal in size and morphology. Nuchal skin fold: Normal at less than 6 mm between 14-21 weeks gestational age. Face: Nose and lips, facial profile are normal. Spine: No evidence for spina bifida. Heart: 4-chambered heart is present, with normal ventricular outflow tracts. Diaphragm: Diaphragm is intact. Stomach: Left-sided stomach is present. A cystic area seen within the abdomen, probably the gallbladder. Recommend attention on follow-up ultrasound. Kidneys: No hydronephrosis. Normal is less than 5 mm in 2nd trimester, less than 7 mm in 3rd trimester. Cord: 3-vessel cord has orthotopic insertion. Bladder: Normal in size. Extremities: All 4 extremities identified. IMPRESSION: 1. A cystic area within the abdomen is probably normal gallbladder are, however recommend follow-up on follow-up ultrasound. 2. Otherwise normal anatomy. 3. 24 weeks 0 day gestation by initial ultrasound. 4. Estimated weight 638 g, 35th percentile. We strive to produce accurate, complete, and clear reports of imaging services. To assist us in improving patient care, this report was composed using standard report templates and voice recognition software. Therefore, it may contain abnormal punctuation, insertions and/or omissions. Occasional wrong-word or sound-alike substitutions may occur. Though we review the report and make efforts to correct it, we do recommend that the report be read carefully in proper context to recognize any text inaccuracies. Dictated by: Ronnell Thompson M.D. on 01/02/2022 at 14:07 Approved by: Ronnell Thompson M.D. on 01/02/2022 at 14:14
== END ==
PROVIDERS: Referring Provider Obstetrics & Gynecology; Visit Provider Obstetrics & Gynecology
DX: Z36.89 Encounter for other specified antenatal screening (principal); Z3A.24 24 weeks gestation of pregnancy
CPT/HCPCS: 76811